=== PATIENT | female | born 1945 | race African-American/Black ===

== ENCOUNTER 2020-12-06 13:42 | Inpatient (IN) | payer MEDICARE, MEDICAID, SELFPAY ==
[2020-12-06] VITALS (20 sets, daily range): BP systolic 118–172; BP diastolic 46–96; PULSE 84–109; RESP 16–22; TEMP 36.2–36.8; O2SAT 96–100; BMI 43.6
--- NOTE | ~2020-12-06 | XR_ITS ---
EXAMINATION: XR chest 1V portable DATE: 12/06/2020 14:41 INDICATION: Chest pain. TECHNIQUE: A single frontal view of the chest was obtained on 2 radiographs. COMPARISON: None. FINDINGS: The patient is rotated to her right. There are mild airspace opacities in the lower lung zo amelia. No pleural effusion or pneumothorax. Cardiomegaly is noted. IMPRESSION: 1. Mild airspace opacities in the lower lung zones, consistent with atelectasis versus pneumonia. 2. Cardiomegaly. Reviewed, dictated and finalized at location B.
--- NOTE | ~2020-12-06 | XR_ITS ---
EXAMINATION: XR chest 1V portable INDICATION: Shortness of breath TECHNIQUE: Portable AP chest at 1351 hours COMPARISON: 12/06/2020 FINDINGS: There are patchy opacities throughout the right lung and in the left mid and lower lung zon es. No definite pleural effusion or pneumothorax is identified. Cardiomegaly is noted. Advanced osteo arthritis of the right shoulder and moderate osteoarthritis of the left. IMPRESSION: 1. Patchy opacities throughout the right lung and in the left mid and lower lung zones, consistent wi th pneumonia and/or atelectasis and/or pulmonary edema. Reviewed, dictated and finalized at location A. IMPRESSION: 1. Patchy opacities throughout the right lung and in the left mid and lower sharifa g zones, consistent with pneumonia and/or atelectasis and/or pulmonary edema.
--- NOTE | ~2020-12-06 | US_ITS ---
EXAMINATION: US venous doppler UE LT DATE: 12/07/2020 09:20 INDICATION: Left upper limb swelling TECHNIQUE: Grayscale images without and with compression and Doppler images of the left upper extremi ty veins were obtained. COMPARISON: None. FINDINGS: The left internal jugular vein, subclavian vein, axillary vein, brachial vein, basilic vein, cephalic vein, radial vein, and ulnar vein are patent. IMPRESSION: 1. Patent left upper extremity veins. No evidence of venous thrombosis. Reviewed, dictated and finalized at location A.
--- NOTE | ~2020-12-06 | CT_ITS ---
EXAMINATION: CT abdomen pelvis w con DATE: 12/06/2020 16:19 INDICATION: Abdomen pain TECHNIQUE: Computed tomography (CT) of the abdomen and pelvis was performed with 100 cc Omnipaque 350 intravenous contrast. The dose-length product was 1569.33 mGy-cm. Automated exposure control and ite rative reconstruction technique were employed. COMPARISON: None. FINDINGS: Small pleural effusions. Bibasilar dependent atelectasis. Cardiomegaly. There is subcutaneo us edema of the anterior and posterior soft tissues of the pelvis. There is fluid in the there is a u mbilical hernia containing nonobstructed bowel. No free air or free fluid. Silver catheter present in the bladder. Nonobstructive bowel gas pattern. There are bilateral renal cysts. The liver, spleen, pa ncreas, are unremarkable. There is mild bilateral symmetric hypertrophy of the adrenal glands without discrete mass. Severe lumbar spondylosis. There is severe osteoarthritis of the hips. Flank soft tis sues. IMPRESSION: 1. Small pleural effusions with bibasilar dependent atelectasis. 2: Umbilical hernia containing nonobstructed bowel. 3: Cardiomegaly. 4: Subcutaneous edema. Reviewed, dictated and finalized at location A.
--- NOTE | ~2020-12-06 | US_ITS ---
EXAMINATION: US renal BI DATE: 12/08/2020 14:28 INDICATION: Acute kidney injury TECHNIQUE: Multiple grayscale and Doppler ultrasound images of the kidneys were obtained. COMPARISON: CT, 12/06/2020 FINDINGS: The examination is limited by the patient's body habitus. The right kidney measures 11.1 x 5.1 x 5.6 cm. The known right kidney cyst is not demonstrated. The left kidney measures 13.5 x 6.7 x 6.9 cm and contains a 2.7 cm cyst. The kidneys demonstrate normal parenchymal echogenicity. There is no hydronephrosis. The bladder is decompressed by Silver catheter. IMPRESSION: 1. Normal kidneys without hydronephrosis. Reviewed, dictated and finalized at location A.
--- NOTE | 2020-12-06 13:47 | ECG_ITS ---
Measurements Intervals [place] Rate: 89 P: 58 WI: 142 QRS: 34 QRSD: 118 T: 128 QT: 405 QTc: 493 Interpretive Statements SINUS RHYTHM ATRIAL COUPLET, ATRIAL AND VENTRICULAR PREMATURE COMPLEXES INTRAVENTRICULAR CONDUCTION DELAY ST-T WAVE ABNORMALITY IN ANTEROLAT/HIGH LAT LEADS- CONSIDER ISCHEMIA BASELINE ARTIFACT- I, II, III, AVR, AVL, AVF, V1 ABNORMAL ECG Electronically Signed On 12-06-2020 13:53:20 CDT by Zion Saleh D.O.
--- NOTE | 2020-12-06 13:57 | ED.CHESTPAIN ---
HPI - Chest Pain General Chief Complaint: Chest Pain Stated Complaint: CP Time Seen by Provider: 12/06/20 13:53 Source: RN notes reviewed History of Present Illness HPI narrative: Patient presents to emergency department from [facility] via EMS for chest pain. Per the staff there the patient had chest pain earlier today and received 1 nitro which relieved her pain. Patient then had a second episode of chest pain received 3 nitros with resolution of pain. Patient currently in the emergency department complaining of diffuse abdominal pain she states that she has no chest pain at this time and does not fully recall the previous incident. She denies any fevers or chills shortness of breath nausea vomiting diarrhea or any other symptoms per staff at [facility] the patient's INR was also recently high and received vitamin K Related Data Allergies Allergy/AdvReac Type Severity Reaction Status Date / Time No Known Allergies Allergy Verified 12/06/20 16:50 Review of Systems Review of Systems: Narrative: Gen.: Denies fevers or chills Eyes: Denies eye pain or visual change ENT: Denies congestion Respiratory: Denies shortness of breath or cough CV: See HPI GI: Reports abdominal pain denies nausea vomiting or diarrhea chronic indwelling Silver Musculoskeletal: Denies back pain or muscle pain Neuro: Denies numbness, tingling, weakness or focal weakness Skin: Denies rash Except as documented, all other systems reviewed and negative [facility] Past Medical History Medical History (Updated 12/06/20 @ 17:19 by Con Chung DO) CHF (congestive heart failure) Social History Social History (Updated 12/06/20 @ 17:16 by Con Chung DO) Smoking status: Never smoker Exam Narrative: Exam Narrative: APPEARANCE: No acute distress, nontoxic, resting in bed EYES: EOMI HEENT: Normocephalic, atraumatic, OMM RESPIRATORY: No respiratory distress Clear to auscultation bilaterally with no rhonchi wheezing or rales. CARDIOVASCULAR: Regular rate and rhythm without murmurs rubs or gallops. ABDOMINAL: Obese, soft nondistended diffusely tender to palpation : Chronic indwelling Silver catheter MUSCULOSKELETAl: Moves all extremities. Right lower limb amputation NEURO: Awake and alert. Following commands, speech normal, no focal deficits SKIN:: Warm, dry. No rashes lesions or abrasions PSYCHIATRIC: Normal affect/mood, Course Course Emergency Course: Discussed with patient's daughter patient was recently admitted to [facility] will obtain records Discussed with ARSENIO Erwin for Dr. Paulino presentation work-up agrees with admission at this time Discussed with patient and family results of workup and diagnosis. Discussed need for admission. Patient and family understand and agree to current treatment plan Vital Signs Vital signs: Vital Signs Temperature 98.2 F 12/06/20 13:42 Pulse Rate 84 12/06/20 13:42 Respiratory Rate 20 12/06/20 13:42 Blood Pressure 166/96 H 12/06/20 13:42 Pulse Oximetry 99 12/06/20 13:42 Temperature 98.2 F 12/06/20 13:42 Pulse Rate 84 12/06/20 15:03 Respiratory Rate 16 12/06/20 15:03 Blood Pressure 166/96 H 12/06/20 13:42 Pulse Oximetry 98 12/06/20 15:03 MDM - Chest Pain Lab Data Result diagrams: 12/06/20 14:30 12/06/20 14:30 Labs: Lab Results 12/06/20 12/06/20 12/06/20 Range/Units 14:29 14:30 14:30 WBC 23.3 H (4.5-10.0) K/mm3 RBC 2.89 L (4.2-5.4) M/mm3 Hgb 8.7 L (12.0-15.0) g/dL Hct 27.3 L (37.0-47.0) % MCV 94.5 (80-100) fl MCH 30.1 (26-34) pg MCHC 31.9 L (32-36) g/dl RDW 15.4 H (11.5-14.5) % Plt Count 456 H (150-375) k/mm3 MPV 9.4 (7.4-10.4) fl Immature Gran % (Auto) Not Reportable Neut % (Auto) Not Reportable Lymph % (Auto) Not Reportable [place] % (Auto) Not Reportable Eos % (Auto) Not Reportable Baso % (Auto) Not Reportable Lymph # (Auto) Not Reporta
[2020-12-06 14:41] LABS: Hematocrit 27.3 % (37.0-47.0); Hemoglobin 8.7 g/dL (12.0-15.0); Mean Corpuscular HGB Conc 31.9 g/dl (32-36); Mean Corpuscular Hemoglobin 30.1 pg (26-34); Mean Corpuscular Volume 94.5 fl (80-100); Mean Platelet Volume 9.4 fl (7.4-10.4); Platelet Count Result 456 k/mm3 (150-375); Red Blood Count 2.89 M/mm3 (4.2-5.4); Red Cell Distribution Width 15.4 % (11.5-14.5); White Blood Count 23.3 K/mm3 (4.5-10.0)
[2020-12-06 14:51] LABS: Alanine Aminotransferase 31 U/L (4-35); Albumin Level 2.9 g/dL (3.5-5.1); Alkaline Phosphatase 106 U/L (38-126); Aspartate Amino Transferase 76 U/L (14-36); Bilirubin,Total 0.5 mg/dL (0.2-1.3); Lipase 23 U/L (23-300)
--- NOTE | 2020-12-06 14:52 | PC.NURSE ---
SPOKE WITH PT FAMILY AT THIS TIME, UPDATED ON PT STATUS. ASSISTED PT WITH ATTEMPTING BM, PT UNABLE TO GO, BED PAIN REMOVED, REPOSITIONED, CALL LIGHT IN REACH.
--- NOTE | 2020-12-06 14:53 | PC.NURSE ---
WHILE REPOSTIONING PT, PT NOTED TO HAVE COPIOUS AMOUNTS OF THICK WHITE DISCHARGE COMING FROM [facility]. EDP BEAR INFORMED, NO NEW ORDERS.
[2020-12-06 14:57] LABS: INR 1.3; Prothrombin Time 16.5 Seconds (11.1-14.7)
[2020-12-06 14:58] LABS: Partial Thromboplastin Time 36.2 SECONDS (22.3-36.8)
[2020-12-06 15:00] LABS: Anion Gap 5 mmol/L (8-16); Blood Urea Nitrogen 31 mg/dL (7-17); Calcium 8.6 mg/dL (8.4-10.2); Carbon Dioxide 27 mmol/L (22-30); Chloride 106 mmol/L (98-107); Estimated Glomerular Filt Rate 38; Glucose 107 mg/dL (65-105); Sodium 138 mmol/L (137-145)
[2020-12-06 15:07] LABS: Lymphocytes Absolute Manual 2.79 K/mm3 (1.1-4.5); Monocytes Absolute Manual 0.69 K/mm3 (0.1-0.90); Monocytes Percent Manual 3 % (3-9); Neutrophils Percent Manual 85 % (46-73); Total Cells Counted 100
[2020-12-06 15:08] LABS: Anisocytosis 2+ (NORMAL); Hypochromasia 1+ (NORMAL); Platelet Estimate Increased (Adequate)
[2020-12-06 15:11] LABS: Troponin I 0.013 ng/mL (0.000-0.034)
[2020-12-06] MEDS: SODIUM CHLORIDE 0.9% IV 1,000 ML 999 ML IV CONT (15:57)
--- NOTE | 2020-12-06 16:16 | PC.NURSE ---
JERICHO UPDATED ON PT STATUS AT THIS TIME.
[2020-12-06 16:54] LABS: Add Urine Microscopic? YES; Appearance Urine Cloudy (Clear); Bacteria Urine Trace /hpf; Bilirubin Urine Negative (Negative); Blood Urine Negative (Negative); Budding Yeast Urine Present /hpf; Calcium Oxalate Crystals Urine Present /hpf; Color Urine Amber (Yellow); Glucose Urine UA Negative (Negative); Ketones Urine Trace mg/dL (Negative); Leukocyte Esterase Ur 3+ LEU/UL (Negative); Mucus Urine Rare /lpf; Nitrate Urine Negative (Negative); Protein Urine 2+ mg/dL (Negative); Specific Grav Ur 1.017 (1.001-1.035); Squamous Epithelial Cell Urine Few /hpf (Few); Urobilinogen Urine Negative mg/dL (<2.0); WBC Urine >75 /hpf
--- NOTE | 2020-12-06 17:23 | PC.NURSE ---
Called binu johnson, confirmed arrival for blood cultures, lactic, and trop.
[2020-12-06 17:37] LABS: Lactic Acid Reflex 1.5 mmol/L (0.7-2.1)
--- NOTE | 2020-12-06 18:40 | PC.NURSE ---
Unable to obtain 2nd set of blood cultures. Pt. becoming uncooperative upon blood draw.
--- NOTE | 2020-12-06 20:59 | ADMGEN ---
This patient, Jolie Amador, was admitted to IMU Room 204-01 AT 1955. Patient/family oriented to hospital policies and general routines including ID bracelet, bed and alarms, visiting hours, pain management, procedures, bathroom and other care routines, personal items, smoking policy, room service/diet, and visiting hours. Information on how to activate the Rapid Response Team has been discussed. Patient/Family are encouraged to report perceived risks to care and to ask questions if they do not understand what they are told or what they should do.
--- NOTE | 2020-12-06 21:15 | PM.IMHP ---
H&P: HPI History of Present Illness Date/Time: 12/06/20 21:15 this is a 75-year-old female patient who resides at [facility]. She has a past medical history of dementia. The patient was complaining of chest pain and given nitro x3 at the alf. This appeared to resolve her chest pain. The patient tells me that her chest pain started last night. Her EKG was read as sinus rhythm with frequent supraventricular premature complexes moderate intraventricular conduction delay. ST deviation and moderate T-wave and most normal Penilla. The patient was satting 95% on 3 L per nasal cannula normally the patient takes Coumadin for unknown reason and her INR was high and she was given vitamin K over the weekend. Her white count is 23.3. The patient has a chronic necrotic right heel ulcer and also has at of very large unstageable pressure ulcer on the sacral area as well. Her H&H is 8.7 and 27.3 baseline is unknown. Patient was recently at [facility] and we are attempting to get records from that hospital. Her INR was found to be 1.3. Her creatinine is 1.6. Her baseline is unknown. Lactic is normal. Patient was started on Rocephin in the emergency room for her urinary tract infection. First troponin is negative and the 2nd 1 is still pending. The patient denied any chest pain to the ER provider and stated she had abdominal discomfort.On the date of service of 12/06/2020. Chief Complaint: Chest pain Review of Systems Review of Systems: ROS unobtainable: Yes unobtainable due to mental status Constitutional: Constitutional: Reports as per HPI and Reports no additional constitutional complaints Eyes: Eyes: Reports as per HPI and Reports no additional eye complaints ENT: Reports system reviewed and no additional complaints, except as documented and Reports Normal hearing present Cardiovascular: Cardiovascular: Reports no additional cardiovascular complaints Respiratory: Respiratory: Reports no additional respiratory complaints and Reports no additional respiratory complaints Gastrointestinal: Gastrointestinal: Reports as per HPI and Reports no additional gastrointestinal complaints Musculoskeletal: Musculoskeletal: Reports no additional musculoskeletal complaints Integumentary/Breasts: Skin/Breast: Reports system reviewed and no additional complaints, except as docu and Reports as per HPI Neurologic: Reports system reviewed and no additional complaints, except as documented, Reports as per HPI and Reports Normal hearing present Psychiatric: Psychiatric: Reports no additional psychiatric complaints and Reports as per HPI Endocrine: Endocrine: Reports no additional endocrine complaints Hematologic/Lymphatic: Hematologic/Lymphatic: Reports no additional hematologic/lymphatic complaints Allergic/Immunologic: Allergic/Immunologic: Reports no additional allergic/immunologic complaints [facility] Past Medical History Medical History (Updated 12/06/20 @ 21:29 by Yaima Jason NP) Blindness CAD (coronary artery disease) CHF (congestive heart failure) Chronic renal failure, stage 3 (moderate) COPD (chronic obstructive pulmonary disease) DM2 (diabetes mellitus, type 2) Heel ulcer History of left above knee amputation Hypertension Sacral ulcer Seizure disorder Surgical History Surgical History (Updated 12/06/20 @ 21:29 by Yaima Jason NP) H/O abdominal surgery The patient has a scar to her upper abdomen as well as her lower abdomen. Family History Family History (Updated 12/06/20 @ 21:29 by Yaima Jason NP) Unknown Unknown family medical history Social History Social History (Updated 12/06/20 @ 21:37 by Yaima Jason NP) Social History: The patient has a living will with her daughters being the power chief service observer. The patient tells me that she has 4 children. She is . The patient stated that she was a [id number] mother. She denied any tobacco alcohol or illicit drugs
[2020-12-06 23:37] LABS: Troponin I 0.014 ng/mL (0.000-0.034)
[2020-12-07] VITALS (16 sets, daily range): BP systolic 97–148; BP diastolic 44–81; PULSE 66–111; RESP 18–22; TEMP 36.1–36.7; O2SAT 92–100; BMI 43.6
[2020-12-07] MEDS: hydrALAZINE HCL 50 MG TABLET PO ×3 (05:51→21:20)
[2020-12-07 06:06] LABS: Basophils Absolute Auto 0.1 K/mm3 (0.0-0.1); Basophils Percent Auto 0.3 % (0.2-1.2); Eosinophils Absolute Auto 0.1 K/mm3 (0-0.3); Eosinophils Percent Auto 0.2 % (0-4.4); Hematocrit 23.5 % (37.0-47.0); Hemoglobin 7.5 g/dL (12.0-15.0); Immature Granulocyte Absolute 0.53 K/mm3 (0.00-0.031); Mean Corpuscular HGB Conc 31.9 g/dl (32-36); Mean Corpuscular Hemoglobin 29.8 pg (26-34); Mean Corpuscular Volume 93.3 fl (80-100); Mean Platelet Volume 9.2 fl (7.4-10.4); Monocytes Absolute Auto 1.5 K/mm3 (0.1-0.6); Monocytes Percent Auto 5.7 % (2.6-8.5); Neutrophils Absolute Auto 20.6 K/mm3 (1.3-6.7); Neutrophils Percent Auto 79.8 % (45.5-73.1); Nucleated Red Blood Cells Absolute Auto 0.1 K/mm3 (0.0-0.012); Nucleated Red Blood Cells Perc 0.2 % (0.0-0.2); Platelet Count Result 367 k/mm3 (150-375); Red Blood Count 2.52 M/mm3 (4.2-5.4); Red Cell Distribution Width 15.3 % (11.5-14.5); White Blood Count 25.9 K/mm3 (4.5-10.0)
[2020-12-07 06:17] LABS: Alanine Aminotransferase 29 U/L (4-35); Albumin Level 2.5 g/dL (3.5-5.1); Alkaline Phosphatase 90 U/L (38-126); Anion Gap 7 mmol/L (8-16); Aspartate Amino Transferase 62 U/L (14-36); Bilirubin,Total 0.3 mg/dL (0.2-1.3); Blood Urea Nitrogen 28 mg/dL (7-17); Calcium 8.3 mg/dL (8.4-10.2); Carbon Dioxide 27 mmol/L (22-30); Chloride 109 mmol/L (98-107); Estimated CRCL calculation 36 ml/min; Estimated Glomerular Filt Rate 30; Glucose 71 mg/dL (65-105); Potassium 3.7 mmol/L (3.4-5.0); Sodium 143 mmol/L (137-145)
[2020-12-07] MEDS: oxyCODONE/ACETAMINOPHEN (*CRX) 5-325 MG TABLET PO (06:17)
[2020-12-07 06:25] LABS: INR 1.4
[2020-12-07 08:01] LABS: Hemoglobin A1C 9.4 % (<5.7)
[2020-12-07 08:21] LABS: Glucose Point of Care 69 mg/dl (65-105)
--- NOTE | 2020-12-07 08:40 | PM.CNCAR ---
Assessment and Plan Assessment and plan (1) Chest pain: Code(s): R07.9 - Chest pain, unspecified Status: Acute Assessment and Plan: 75-year-old female with past medical history of ? coronary disease and MS status post stenting as per patient (intervention reports are not available) hypertension, diabetes mellitus, renal insufficiency, history of left AKA, cognitive impairment/dementia. Patient's cognitive impairment/questionable dementia, and limited information could be obtained from the patient. She presented to the hospital with complaints of chest pain and abnormal discomfort. Her EKG shows sinus rhythm, ST-T abnormalities in the lateral leads. Old EKG is not available. Serial troponins are negative thus far. Patient is receiving treatment for UTI. -continue home medications including aspirin, beta-tatiana, statin. Nitroglycerin as needed for chest pain. -obtain medical records from [facility] about patient's previous cardiac workup. -need for any additional cardiac workup will be based on patient's previous cardiac workup and on clinical course during this hospitalization. -other medical management as per primary team. (2) Heel ulcer: Code(s): L97.409 - Non-pressure chronic ulcer of unspecified heel and midfoot with unspecified severity Status: Chronic Assessment and Plan: Local wound care, surgical evaluation for sacral decubitus ulcer debridement. History of Present Illness History of Present Illness Consult date/time: 12/07/20 08:40 Date of consult: 12/07/2020 Reason for consult: Chest pain Requesting physician: Dr. Giron Chief complaint: Chest pain, abdominal pain HPI: 75-year-old female with past medical history of ? coronary disease and MS status post stenting as per patient (intervention reports are not available) hypertension, diabetes mellitus, renal insufficiency, history of left AKA, cognitive impairment/dementia. Patient is a senior living resident and was brought to [facility] on 12/06/2020 with complaints of chest discomfort. Apparently, she had recurrent chest discomfort after sublingual nitroglycerin. Since admission to the hospital, her chest pain has resolved. She had complained of abdominal pain at the time of presentation. At present, her main complaint is right foot and pain. Patient has cognitive impairment, and is unable to provide detailed medical information. She states that she sees a fitter helper at [facility]. She is unable to recall the name of the fitter helper. Her medication list shows warfarin, uncertain about the indication at this time. Her baseline functional capacity is unknown. EKG on my personal evaluation shows sinus rhythm, PACs, nonspecific intraventricular conduction delay, ST-T abnormality in the lateral leads. Serial troponins are negative. Chest x-ray shows mild airspace opacities in the lower lung zones, consistent with atelectasis versus pneumonia; cardiomegaly. CT scan of the abdomen and pelvis shows Small pleural effusions with bibasilar dependent atelectasis; umbilical hernia containing nonobstructed bowel, cardiomegaly, subcutaneous edema. Patient has leukocytosis with left shift, and UA is suggestive of UTI. Reason For Visit: UTI/chest pain/abdominal pain Review of Systems Review of Systems: Narrative: General: Generalized fatigue Psychological: Positive for anxiety, depression Ophthalmic: negative for loss of vision ENT: Negative for epistaxis, headaches Allergy and immunology: Negative for hives, nasal congestion Hematologic and lymphatic: Negative for overt bleeding problems Endocrine: Negative for hot flashes, palpitations Respiratory: Negative for cough, hemoptysis Cardiovascular: Positive for chest pain Gastrointestinal: Positive for generalized abdominal pain Musculoskeletal: Positive for right leg pain Neurological: Positive for generalized weakness Dermatological: Skin break
--- NOTE | 2020-12-07 09:00 | PM.IMPN ---
Progress Note: A&P Assessment and Plan (1) Chest pain: Code(s): R07.9 - Chest pain, unspecified Status: Acute Assessment and Plan: Patient had 3 nitroglycerins prior to coming to the hospital and stated that relieved her discomfort. The patient got here she was complaining of some diffuse abdominal pain instead. The patient has a history of coronary artery disease and has been on Ranexa 1st troponin was negative. Cardiology consult was ordered. (2) CHF (congestive heart failure): Code(s): I50.9 - Heart failure, unspecified Status: Acute Assessment and Plan: Continue with home medications. (3) Chronic renal failure, stage 3 (moderate): Code(s): N18.30 - Chronic kidney disease, stage 3 unspecified Status: Chronic Assessment and Plan: Awaiting records from [facility] to compare labs. The patient had IV fluids but I will will discontinue since she has congestive heart failure. Recheck labs in the a.m.. (4) DM2 (diabetes mellitus, type 2): Code(s): E11.9 - Type 2 diabetes mellitus without complications Status: Chronic Assessment and Plan: Accu-Cheks AC and HS. Check A1c. (5) Seizure disorder: Code(s): G40.909 - Epilepsy, unspecified, not intractable, without status epilepticus Status: Chronic Assessment and Plan: Continue home medications. (6) Hypertension: Code(s): I10 - Essential (primary) hypertension Status: Chronic Assessment and Plan: Continue with home medications. (7) COPD (chronic obstructive pulmonary disease): Code(s): J44.9 - Chronic obstructive pulmonary disease, unspecified Status: Chronic Assessment and Plan: Continue with home medications. (8) Acute UTI: Code(s): N39.0 - Urinary tract infection, site not specified Status: Acute Assessment and Plan: Patient was started on Rocephin. Please monitor blood in urine cultures. (9) Heel ulcer: Code(s): L97.409 - Non-pressure chronic ulcer of unspecified heel and midfoot with unspecified severity Status: Chronic Assessment and Plan: Patient has eschar tissue to the right heel please see the pictures on the computer. Wound care consult was placed. Further recommendation per wound care. (10) Anemia: Code(s): D64.9 - Anemia, unspecified Status: Acute Assessment and Plan: Continue to monitor. We have no previous labs. Additional Plan The patient has a chronic sacral wound that is unstageable. Please see the pictures in the computer. Wound care consult has been placed. The patient also has eschar tissue to the right heel. Surgical and wound care consult is ordered. Wound culture was also ordered. Antibiotics changed to vancomycin and Zosyn. Pharmacy to dose. Will continue current treatment and follow cultures. Subjective Date/time seen: 12/07/20 09:00 Patient was seen during the morning rounds today. Patient is relatively asymptomatic. Patient denies any shortness of breath or chest pain. Patient denies any abdominal pain, nausea or vomiting. Mood stable. Review of Systems Review of Systems: ROS unobtainable: Yes unobtainable due to mental status Constitutional: Constitutional: Reports as per HPI and Reports no additional constitutional complaints Eyes: Eyes: Reports as per HPI and Reports no additional eye complaints ENT: Reports system reviewed and no additional complaints, except as documented and Reports Normal hearing present Cardiovascular: Cardiovascular: Reports no additional cardiovascular complaints Respiratory: Respiratory: Reports no additional respiratory complaints and Reports no additional respiratory complaints Gastrointestinal: Gastrointestinal: Reports as per HPI and Reports no additional gastrointestinal complaints Musculoskeletal: Musculoskeletal: Reports no additional musculoskeletal complaints Integumentary/Breasts: Skin/B
[2020-12-07 09:54] LABS: Glucose Point of Care 104 mg/dl (65-105)
[2020-12-07] MEDS: DOCUSATE SODIUM 100 MG CAPSULE PO (11:33)
[2020-12-07] MEDS: dilTIAZem HCL CD 180 MG CAP.ER.24H PO (11:33)
[2020-12-07] MEDS: levETIRAcetam 500 MG TABLET PO ×2 (11:33→17:33)
[2020-12-07] MEDS: FUROSEMIDE 40 MG TABLET PO (11:33)
[2020-12-07] MEDS: RANOLAZINE 500 MG TAB.ER.12H PO ×2 (11:33→17:33)
[2020-12-07] MEDS: SOD HYPOCHLORITE 1/4 STRENGTH 473 ML 1 APPLIC TOPICAL ×2 (11:34→21:20)
[2020-12-07] MEDS: MULTIVIT W/ IRON, MINERALS 15 ML LIQUID (*BKC) PO (11:34)
[2020-12-07] MEDS: PANTOPRAZOLE 40 MG TABLET PO (11:34)
[2020-12-07] MEDS: METOPROLOL TARTRATE 50 MG TAB PO ×2 (11:34→21:20)
[2020-12-07] MEDS: ATORVASTATIN 10 MG TABLET PO (11:34)
[2020-12-07] MEDS: ASPIRIN 81 MG ENTERIC TABLET PO (11:34)
--- NOTE | 2020-12-07 12:28 | PM.CNGS ---
Assessment and Plan Assessment and plan (1) Decubitus ulcer of sacral region, unstageable: Onset Date: Unknown Code(s): L89.150 - Pressure ulcer of sacral region, unstageable Status: Chronic Assessment and Plan: The patient has an unstageable sacral decubitus ulcer with odorous purulent drainage. This could be contributing to her leukocytosis. We would recommend proceeding with excisional debridement. This seems most appropriate to be done in the OR due to her body habitus, size and location of the ulcer, risks for bleeding, and for pain control/comfort to tolerate sufficient debridement. Since the patient has eaten today, we will try to add her to the surgery schedule tomorrow with Dr. Christina. Continue broad-spectrum IV antibiotics. Will also initiate BID dressing changes with Dakin's solution for now. Minimize pressure to her wounds with frequent turning and repositioning. Will request a First Step specialty mattress. I discussed the plan with Lorena, the patient's daughter who is not the POA, because her daughter/POA Armida is out of town and was unavailable. Lorena is going to get ahold of her to have her call the hospital regarding consent. (2) Heel ulcer: Code(s): L97.409 - Non-pressure chronic ulcer of unspecified heel and midfoot with unspecified severity Status: Chronic Assessment and Plan: Unstageable right heel ulcer with firm, dry eschar overlying the wound bed. This appears stable. Will start betadine dressing changes daily. Encourage pressure offloading and use heel protectors, which she has from the longterm. (3) Leukocytosis: Code(s): D72.829 - Elevated white blood cell count, unspecified Status: Acute Assessment and Plan: WBC markedly elevated with an increase to 25,900 today. Source could be urinary versus sacral decubitus ulcer. Would agree with broadening antibiotic coverage. She is now on IV Zosyn and Vancomycin. Trend labs. (4) Acute UTI: Code(s): N39.0 - Urinary tract infection, site not specified Status: Acute Assessment and Plan: Urinalysis suggests UTI, urine culture pending. Could be contributing to leukocytosis. Continue IV abx and management per Hospitalist. (5) Chest pain: Code(s): R07.9 - Chest pain, unspecified Status: Acute Assessment and Plan: Cardiology following. Serial troponins negative thus far. They are requesting records from [facility] to decide on further work-up. (6) Anticoagulant long-term use: Code(s): Z79.01 - intermediate frame tender (current) use of anticoagulants Status: Acute Assessment and Plan: INR 1.4, repeat labs tomorrow. Warfarin has been restarted from her home medication list. After speaking with the patient and her daughter, I was unable to definitively find out why she is on chronic anticoagulation. The patient mentioned having a heart valve replacement, but her daughter could not confirm this. In review of her imaging with the Radiologist, he does not see a mechanical valve at the mitral or tricuspid valve on her CT, and was unable to visualize the aortic and pulmonic valves. The Radiologist could not make out a mechanical heart valve on the chest x-ray either, but also felt that there was a slight possibility it could be missed on this film because it was a poor picture. In regards to surgical intervention, although it is not ideal, we will still plan to proceed with debridement while the patient is on her warfarin to eliminate the risks associated with holding her anticoagulation. This will be done in the OR where there are more options to achieve hemostasis if needed while debriding the wound. (7) DM2 (diabetes mellitus, type 2): Code(s): E11.9 - Type 2 diabetes mellitus without complications Status: Chronic (8) CHF (congestive heart failure): Code(s): I50.9 - Heart failure, unspecified Status: Acute (9) COPD (chronic obstructive pulmonary disea
[2020-12-07 12:29] LABS: Glucose Point of Care 133 mg/dl (65-105)
--- NOTE | 2020-12-07 16:31 | WPDANESEPP ---
Anes - Eval Pre Procedure Procedure: Operation Date: 12/08/20 07:30 Proposed Procedures p Debridement Sacral Decubitus Ulcer - Darío Christina DO Date/Time: 12/07/20 16:31 Pre Op Diagnosis: UTI/chest pain/abdominal pain Patient Data Age: 75 Gender: F Height: 5 ft 11 in Weight: 141.8 kg Last Vital Signs Temp 97.5 F L 12/07/20 16:00 Pulse 78 12/07/20 16:00 Resp 22 H 12/07/20 16:00 BP 133/44 L 12/07/20 16:00 Pulse Ox 100 12/07/20 16:00 Allergies Allergy/AdvReac Type Severity Reaction Status Date / Time No Known Allergies Allergy Verified 12/06/20 16:50 Home Medications Medication Instructions Recorded Confirmed Type Adult One Daily Multivitamin 1 tab-cap BYMOUTH DAILY 12/06/20 12/06/20 History Arginaid 1 packet BYMOUTH BID 12/06/20 12/06/20 History aspirin [Aspir-81] 81 mg PO DAILY 12/06/20 12/06/20 History atorvastatin 10 mg PO DAILY 12/06/20 12/06/20 History cetirizine 10 mg PO DAILY 12/06/20 12/06/20 History diltiazem HCl 180 mg PO DAILY 12/06/20 12/06/20 History furosemide 40 mg PO DAILY 12/06/20 12/06/20 History hydralazine 50 mg PO Q8H 12/06/20 12/06/20 History insulin lispro protamin-lispro 52 unit SUBCUT BID 12/06/20 12/06/20 History [Humalog Mix 75-25(U-100)Insuln] ipratropium-albuterol 1 ml INHALATION Q6H PRN 12/06/20 12/06/20 History levetiracetam 500 mg PO BID 12/06/20 12/06/20 History losartan 100 mg PO DAILY 12/06/20 12/06/20 History metoprolol tartrate 50 mg PO BID 12/06/20 12/06/20 History nitroglycerin 0.4 mg SUBLINGUAL USEASDIRECTD 12/06/20 12/06/20 History oxycodone-acetaminophen 1 - 2 tablet PO Q4H PRN 12/06/20 12/06/20 History ranolazine 500 mg PO BID 12/06/20 12/06/20 History warfarin 6 mg PO DAILY 12/06/20 12/06/20 History Laboratory Tests 12/06/20 12/06/20 12/06/20 16:41 17:17 18:39 WBC RBC Hgb Hct MCV MCH MCHC RDW Plt Count MPV Immature Gran % (Auto) Neut % (Auto) Lymph % (Auto) [place] % (Auto) Eos % (Auto) Baso % (Auto) Lymph # (Auto) [place] # (Auto) Eos # (Auto) Baso # (Auto) Abs Immat Gran (auto) Absolute Neuts (auto) Absolute Nucleated RBC Nucleated RBC % PT INR Sodium Potassium Chloride Carbon Dioxide Anion Gap BUN Creatinine Estim Creat Clear Calc Estimated GFR Glucose POC Capillary Glucose Hemoglobin A1c Lactic Acid 1.5 mmol/L mmol/L (0.7-2.1) Calcium Total Bilirubin AST ALT Alkaline Phosphatase Troponin I Cancelled Total Protein Albumin Urine Color Tanika (Yellow) Urine Appearance Cloudy H (Clear) Urine pH 5.0 (5.0-9.0) Ur Specific [place] 1.017 (1.001-1.035) Urine Protein 2+ mg/dL H mg/dL (Negative) Urine Glucose (UA) Negative mg/dL mg/dL (Negative) Urine Ketones Trace mg/dL mg/dL (Negative) Ur Blood (Man) Negative (Negative) Urine Nitrate Negative (Negative) Urine Bilirubin Negative (Negative) Urine Urobilinogen Negative mg/dL mg/dL (<2.0) Leukocyte Esterase Rfl 3+ NELY/UL H NELY/UL (Negative) Urine RBC 11-20 /hpf H /hpf (0-2) Urine WBC >75 /hpf H /hpf Ur Squamous Epith Cells Few /hpf /hpf (Few) Calcium Oxalate Crystal Present /hpf /hpf (None) Urine Bacteria Trace /hpf /hpf Hyaline Casts 3-4 /lpf H /lpf (None) Urine Mucus Rare /lpf /lpf Urine Yeast (
[2020-12-07 16:34] LABS: Glucose Point of Care 229 mg/dl (65-105)
[2020-12-07] MEDS: WARFARIN (*PBKC) 3 MG TABLET 6 MG PO (17:33)
[2020-12-07 17:41] LABS: Glucose Point of Care 194 mg/dl (65-105)
[2020-12-07] MEDS: SODIUM CHLORIDE 0.45% 1,000 ML 75 ML IV CONT (18:38)
[2020-12-07 19:57] LABS: Glucose Point of Care 210 mg/dl (65-105)
[2020-12-08] VITALS (24 sets, daily range): BP systolic 99–156; BP diastolic 43–91; PULSE 45–83; RESP 10–26; TEMP 35.7–37.2; O2SAT 93–100
[2020-12-08] MEDS: SODIUM CHLORIDE 0.9% IV 1,000 ML 999 ML IV CONT (04:55)
--- NOTE | 2020-12-08 06:33 | PC.NURSE ---
NOTIFIED SURGERY THAT LABORATORY WAS UNABLE TO GET PATIENTS BLOOD FOR SURGERY.
[2020-12-08] MEDS: LACTATED RINGERS 1,000 ML 30 ML IV CONT (06:50)
[2020-12-08 06:53] LABS: Glucose Point of Care 152 mg/dl (65-105)
--- NOTE | 2020-12-08 06:58 | WPDANESEFPP ---
Anes - Eval Final PreProcedure Day of Procedure 12/08/20 06:58 Patient weight: morbidly obese Heart: regular rate and rhythm Lungs: clear to auscultation Neurological: confused Last oral intake: >/= 8 hours ASA classification: IV Emergent: no Anesthetic plan: proceed Anesthesia type and monitoring: general ETT Informed Consent: The patient's anesthetic plan and its attendant risks and benefits were discussed with the patient/family/POA. Questions were solicited and answers provided to the satisfaction of the patient/family/POA.
--- NOTE | 2020-12-08 07:19 | WPDHPUPDATE1 ---
History and Physical Update Update Date/Time: 12/08/20 07:19 History and Physical has been reviewed, including an updated exam of the patient. There are NO changes in the patient's condition. Risks, benefits, and alternatives have been discussed and questions answered. Patient agrees to proceed with procedure.
--- NOTE | 2020-12-08 08:18 | P.OP_ITS ---
Procedure Note - Detailed Date of procedure: 12/08/20 Pre-op diagnosis: Unstageable Sacral Decubitus Ulcer Post-op diagnosis: other (Stage IV Sacral Decubitus Ulcer) Procedure performed: Sharp excisional debridement of sacral decubitus ulcer including skin, subcutaneous fat, muscle, fascia, and bone measuring 10 cm x 10 cm Description of procedure: * Procedure, risks, benefits, and alternatives discussed with family and consent obtained over the telephone prior to procedure. Patient was brought back to surgical suite. General anesthesia administered by the Anesthesia Department. She was then positioned on the operating room table in right lateral decubitus position. Her sacral area was prepped and draped in sterile fashion using Betadine prep. Sharp excisional debridement was performed using a 10 blade scalpel of the overlying skin. Debridement was continued deeper into subcutaneous fat, muscle, fascia, and all the way to the sacrum. The tissue was excised back to somewhat more healthy appearing tissue, but there still appeared to be extensive necrotic tissue within the wound bed. Deep tissue cultures were obtained for aerobic and anaerobic culture and sensitivity. The total dimensions of the debridement measured 10 cm x 10 cm. Hemostasis was achieved with electrocautery. Bed was then irrigated with sterile saline. Betadine soaked 4 in Kerlix gauze was then packed in the wound bed followed by a heavy drainage pack. The patient was awakened from anesthesia and transferred to recovery. [facility] Surgeon: Darío Christina DO Estimated blood loss (mL): 5 Packing: Yes (4 inch Betadine-soaked Kerlix gauze) Complications: No immediate complications Condition: stable Disposition: floor ([facility]) Findings: * Sharp excisional debridement of the unstageable sacral decubitus ulcer was performed. Once the surface of the wound was excised, I was able to identify necrotic tissue extending all the way down to the sacrum. There was extensive necrotic tissue within the wound bed and a excisional debridement performed for a total area of 10 cm x 10 cm. There is still likely more necrotic tissue within the wound and she would likely need multiple further debridements before adequate control. Overall prognosis is poor even with aggressive care.
[2020-12-08 09:27] LABS: Hematocrit 21.9 % (37.0-47.0); Mean Corpuscular HGB Conc 31.5 g/dl (32-36); Mean Corpuscular Volume 95.2 fl (80-100); Mean Platelet Volume 9.4 fl (7.4-10.4); Platelet Count Result 324 k/mm3 (150-375); Red Cell Distribution Width 15.4 % (11.5-14.5); White Blood Count 24.7 K/mm3 (4.5-10.0)
[2020-12-08] MEDS: hydrALAZINE HCL 50 MG TABLET PO (09:32)
[2020-12-08] MEDS: PANTOPRAZOLE 40 MG TABLET PO (09:34)
[2020-12-08] MEDS: ATORVASTATIN 10 MG TABLET PO (09:34)
[2020-12-08] MEDS: levETIRAcetam 500 MG TABLET PO ×2 (09:34→18:25)
[2020-12-08] MEDS: DOCUSATE SODIUM 100 MG CAPSULE PO (09:34)
[2020-12-08] MEDS: METOPROLOL TARTRATE 50 MG TAB PO (09:34)
[2020-12-08] MEDS: RANOLAZINE 500 MG TAB.ER.12H PO ×2 (09:34→18:29)
[2020-12-08] MEDS: ASPIRIN 81 MG ENTERIC TABLET PO (09:34)
[2020-12-08] MEDS: FUROSEMIDE 40 MG TABLET PO (09:35)
[2020-12-08] MEDS: dilTIAZem HCL CD 180 MG CAP.ER.24H PO (09:35)
[2020-12-08] MEDS: SOD HYPOCHLORITE 1/4 STRENGTH 473 ML 1 APPLIC TOPICAL ×2 (09:37→21:54)
--- NOTE | 2020-12-08 09:46 | PM.PNCARD ---
Progress Note: A&P Assessment and Plan (1) Chest pain: Code(s): R07.9 - Chest pain, unspecified Status: Acute Assessment and Plan: Poorly described chest pain, negative troponins. EKG equivocal, as she does have T-wave inversion in 1, L, V5 and V6 which is new compared to November 18, 2020. Which may represent ischemia. Had nonocclusive coronary disease by cardiac catheterization in 2018 (50% RCA stenosis, mild disease elsewhere) Negative stress test 2018. Continue medical therapy With beta-tatiana, anticoagulation and/or aspirin, atorvastatin, ranolazine, p.r.n. nitroglycerin. Has slightly elevated liver enzymes but I would like to increase the atorvastatin to 20 mg daily. Follow LFTs. No further evaluation needed. Will sign off but please call if I can be of assistance. (2) CAD (coronary artery disease): Code(s): I25.10 - Atherosclerotic heart disease of [place] coronary artery without angina pectoris Status: Inactive Assessment and Plan: History of CAD as above. Continue medical therapy. (3) Hypertension: Code(s): I10 - Essential (primary) hypertension Status: Chronic Assessment and Plan: Reasonably controlled for now. (4) PAD (peripheral artery disease): Code(s): I73.9 - Peripheral vascular disease, unspecified Status: Acute Assessment and Plan: History of PAD, on chronic anticoagulations, status post AKA Subjective Date/time seen: 12/08/20 09:47 Interval history: Follow-up for chest pain, CAD. 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 Date of service 12/08/2020: Patient underwent debridement of her sacral decubitus ulcer this morning by Dr. Garcia. Patient denies any chest pain or shortness of breath for complains of pain of her lower back/decubitus. Says she takes nitroglycerin about once a day at home. Complains that she is uncomfortable; the bed is too hard. Review of previous cardiac studies: 11/18/2020 EKG: NSR, small Q-waves inferiorly cannot rule out old IMI, nonspecific changes inferiorly. Personally reviewed 10/29/2020 ECHO: Normal LV function, diastolic dysfunction 11/19/[address] Ramirez, [facility], patient is stable with no chest pain and controlled blood pressure 01/09/2018 Lexiscan: No ischemia, EF 57% 10/14/2012 cardiac catheterization: Nonocclusive coronary disease, 50% RCA stenosis, 40% stenosis of OM2, mild disease elsewhere, normal LV function, continue medical therapy Review of Systems Constitutional: Constitutional: Reports weakness Eyes: Eyes: Reports no additional eye complaints ENT: Denies epistaxis Cardiovascular: Cardiovascular: Denies chest pain, Reports leg edema and Denies palpitations Respiratory: Respiratory: Denies dyspnea Gastrointestinal: Gastrointestinal: Denies abdominal pain Genitourinary: Genitourinary: Denies flank pain Musculoskeletal: Musculoskeletal: Reports back pain Integumentary/Breasts: Skin/Breast: Reports wounds (Apparently has a sacral decubitus) Neurologic: Reports confusion Psychiatric: Psychiatric: Reports confusion Exam Const: General: comfortable and no acute distress HENMT: Mouth: Yes dry mucous membranes Eyes: EOM: EOMs intact bilaterally Neck: Neck: supple Resp: Effort & Inspection: normal respiratory effort Auscultation: clear to auscultation bilaterally Cardio: Rate: regular rate Rhythm: regular rhythm Heart sounds: no murmurs GI: GI Palp: Yes Soft to palpation and No Tenderness to palpation present (GI) Skin: General skin exam: normal color Wounds: wounds noted (Has a sacral decubitus) Neuro: Cognition (Neuro): abnormal cognition Speech: normal speech Extrem: General: edema (Edema of upper extremities and lower
[2020-12-08 09:49] LABS: INR 2.1; Prothrombin Time 23.9 Seconds (11.1-14.7)
[2020-12-08 09:53] LABS: Alanine Aminotransferase 27 U/L (4-35); Albumin Level 2.3 g/dL (3.5-5.1); Alkaline Phosphatase 87 U/L (38-126); Anion Gap 8 mmol/L (8-16); Aspartate Amino Transferase 43 U/L (14-36); Bilirubin,Total 0.4 mg/dL (0.2-1.3); Blood Urea Nitrogen 37 mg/dL (7-17); Calcium 7.5 mg/dL (8.4-10.2); Carbon Dioxide 24 mmol/L (22-30); Chloride 106 mmol/L (98-107); Estimated CRCL calculation 29 ml/min; Estimated Glomerular Filt Rate 23; Glucose 183 mg/dL (65-105); Sodium 138 mmol/L (137-145)
[2020-12-08 10:04] LABS: Hemoglobin 6.9 g/dL (12.0-15.0)
[2020-12-08 12:30] LABS: Glucose Point of Care 231 mg/dl (65-105)
--- NOTE | 2020-12-08 12:30 | PM.IMPN ---
Progress Note: A&P Assessment and Plan (1) Chest pain: Code(s): R07.9 - Chest pain, unspecified Status: Acute Assessment and Plan: Patient had 3 nitroglycerins prior to coming to the hospital and stated that relieved her discomfort. 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 (2) CHF (congestive heart failure): Code(s): I50.9 - Heart failure, unspecified Status: Acute Assessment and Plan: Acute on top of chronic diastolic CHF exacerbation developed during hospitalization will add IV albumin and give IV Lasix as tolerated by blood pressure (3) Chronic renal failure, stage 3 (moderate): Code(s): N18.30 - Chronic kidney disease, stage 3 unspecified Status: Chronic Assessment and Plan: DC IV fluid monitor avoid nephrotoxic medication. (4) DM2 (diabetes mellitus, type 2): Code(s): E11.9 - Type 2 diabetes mellitus without complications Status: Chronic Assessment and Plan: Accu-Cheks AC and HS. Check A1c. (5) Seizure disorder: Code(s): G40.909 - Epilepsy, unspecified, not intractable, without status epilepticus Status: Chronic Assessment and Plan: Continue home medications. (6) Hypertension: Code(s): I10 - Essential (primary) hypertension Status: Chronic Assessment and Plan: Continue with home medications. (7) COPD (chronic obstructive pulmonary disease): Code(s): J44.9 - Chronic obstructive pulmonary disease, unspecified Status: Chronic Assessment and Plan: Continue with home medications. (8) Acute UTI: Code(s): N39.0 - Urinary tract infection, site not specified Status: Acute Assessment and Plan: Continue IV antibiotics (9) Heel ulcer: Code(s): L97.409 - Non-pressure chronic ulcer of unspecified heel and midfoot with unspecified severity Status: Chronic Assessment and Plan: Patient has eschar tissue to the right heel please see the pictures on the computer. Wound care consult was placed. Further recommendation per wound care. (10) Anemia: Code(s): D64.9 - Anemia, unspecified Status: Acute Assessment and Plan: Continue to monitor. We have no previous labs. Additional Plan chronic sacral wound that is unstageable present on admission. Please see the pictures in the computer. Wound care consult has been placed. Status post debridement Surgical and wound care consult vancomycin and Zosyn. Pharmacy to dose. Follow culture results Subjective Date/time seen: 12/08/20 12:30 Interval history: Patient seen and examined Patient was admitted to the hospital has chest pain cardiology was consulted continue maximal medical treatment also patient has decubitus ulcer surgery was consulted debridement was done patient Also h/o dementia, diastolic CHF, PAD with a left AKA on chronic anticoagulation Patient underwent debridement of her sacral decubitus ulcer this morning by Dr. Garcia. On 12/08/2020 Had acute blood loss anemia probably related to surgery transfuse 1 unit of blood on 12/08/2020 Patient feels weak have upper extremity and lower extremity swelling Patient denies fever headache chest pain I am seeing the patient for anemia Exam Const: Other: Alert Chest no wheeze crackles Abdomen nontender nondistended CVS S1 + S2 Upper and Lower extremity edema Objective Data Vital Signs Vital Signs: Vital Signs - 24 hr 12/07/20 16:00 12/07/20 19:35 12/07/20 20:00 Temperature 97.5 F L 97.9 F Pulse Rate 75 73 69 Respiratory Rate 22 H 18 18 Blood Pressure 133/44 L 121/58 L Pulse Oximetry 100 100 12/07/20 21:20 12/07/20 22:05 12/07/20 22:38 Temperature Pulse Rate 72 Respiratory Rate Blood Pressure Pulse Oximetry 97 97 12/07/20 23:
[2020-12-08 13:09] LABS: Creatine Kinase 410 U/L (30-135)
[2020-12-08] MEDS: INSULIN ASPART (*BKC) 100 UNITS/ML SUB-Q ×2 (13:12→18:27)
[2020-12-08] MEDS: SODIUM CHLORIDE 0.9% IV 250 ML 30 ML IV CONT (15:40)
[2020-12-08 17:13] LABS: Glucose Point of Care 249 mg/dl (65-105)
[2020-12-08] MEDS: TUBING, BLOOD PLUM PUMP TUBING 1 EACH XX (18:29)
[2020-12-08] MEDS: WARFARIN (*PBKC) 3 MG TABLET 6 MG PO (18:29)
[2020-12-08] MEDS: THERAPEUTIC MULTIVITAMINS/MINERALS TAB (*BKC) 1 TABLET PO (18:30)
[2020-12-08] MEDS: ALBUMIN HUMAN 25% 25 GM/100 ML 100 ML IVPB (19:18)
[2020-12-08] MEDS: FUROSEMIDE INJ 40 MG/4 ML VIAL 20 MG IM (19:18)
[2020-12-08 20:16] LABS: Glucose Point of Care 228 mg/dl (65-105)
[2020-12-09] VITALS (12 sets, daily range): BP systolic 92–139; BP diastolic 40–77; PULSE 45–99; RESP 20–25; TEMP 35.6–36.7; O2SAT 93–99
[2020-12-09 06:57] LABS: Estimated CRCL calculation 20 ml/min; Estimated Glomerular Filt Rate 15
[2020-12-09 08:05] LABS: Basophils Absolute Auto 0.1 K/mm3 (0.0-0.1); Basophils Percent Auto 0.2 % (0.2-1.2); Hematocrit 21.9 % (37.0-47.0); Immature Granulocyte Absolute 0.36 K/mm3 (0.00-0.031); Immature Granulocyte Percent A 1.5 % (0-0.5); Lymphocytes Absolute Auto 2.49 K/mm3 (0.9-3.2); Lymphocytes Percent Auto 10.2 % (18.3-44.2); Mean Corpuscular Hemoglobin 30.3 pg (26-34); Mean Corpuscular Volume 94.8 fl (80-100); Mean Platelet Volume 9.6 fl (7.4-10.4); Monocytes Absolute Auto 1.1 K/mm3 (0.1-0.6); Monocytes Percent Auto 4.4 % (2.6-8.5); Neutrophils Absolute Auto 20.4 K/mm3 (1.3-6.7); Neutrophils Percent Auto 83.7 % (45.5-73.1); Nucleated Red Blood Cells Perc 0.1 % (0.0-0.2); Platelet Count Result 329 k/mm3 (150-375); Red Blood Count 2.31 M/mm3 (4.2-5.4); Red Cell Distribution Width 15.6 % (11.5-14.5); White Blood Count 24.4 K/mm3 (4.5-10.0)
[2020-12-09 08:06] LABS: Glucose Point of Care 217 mg/dl (65-105)
[2020-12-09 08:14] LABS: Anion Gap 10 mmol/L (8-16); Blood Urea Nitrogen 43 mg/dL (7-17); Calcium 7.7 mg/dL (8.4-10.2); Carbon Dioxide 23 mmol/L (22-30); Chloride 104 mmol/L (98-107); Estimated CRCL calculation 21 ml/min; Estimated Glomerular Filt Rate 16; Glucose 219 mg/dL (65-105); Potassium 4.3 mmol/L (3.4-5.0); Sodium 137 mmol/L (137-145)
[2020-12-09] MEDS: SODIUM CHLORIDE 0.9% IV 1,000 ML 100 ML IV CONT ×2 (08:42→18:20)
[2020-12-09] MEDS: ASPIRIN 81 MG ENTERIC TABLET PO (08:42)
[2020-12-09] MEDS: RANOLAZINE 500 MG TAB.ER.12H PO (08:43)
[2020-12-09] MEDS: DOCUSATE SODIUM 100 MG CAPSULE PO (08:43)
[2020-12-09] MEDS: ATORVASTATIN 20 MG TABLET PO (08:43)
[2020-12-09] MEDS: THERAPEUTIC MULTIVITAMINS/MINERALS TAB (*BKC) 1 TABLET PO (08:43)
[2020-12-09] MEDS: PANTOPRAZOLE 40 MG TABLET PO (08:43)
[2020-12-09] MEDS: levETIRAcetam 500 MG TABLET PO (08:43)
[2020-12-09] MEDS: dilTIAZem HCL CD 180 MG CAP.ER.24H PO (08:43)
[2020-12-09] MEDS: METOPROLOL TARTRATE 50 MG TAB PO (08:44)
[2020-12-09] MEDS: SOD HYPOCHLORITE 1/4 STRENGTH 473 ML 1 APPLIC TOPICAL ×2 (08:44→22:04)
[2020-12-09] MEDS: INSULIN ASPART (*BKC) 100 UNITS/ML SUB-Q ×3 (08:48→18:19)
[2020-12-09] MEDS: oxyCODONE/ACETAMINOPHEN (*CRX) 5-325 MG TABLET PO (09:17)
--- NOTE | 2020-12-09 11:57 | PM.IMPN ---
Progress Note: A&P Assessment and Plan (1) Chest pain: Code(s): R07.9 - Chest pain, unspecified Status: Acute Assessment and Plan: Patient had 3 nitroglycerins prior to coming to the hospital and stated that relieved her discomfort. 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 (2) CHF (congestive heart failure): Code(s): I50.9 - Heart failure, unspecified Status: Acute Assessment and Plan: Acute on top of chronic diastolic CHF exacerbation developed during hospitalization Worsening renal function DC diuretics (3) Chronic renal failure, stage 3 (moderate): Code(s): N18.30 - Chronic kidney disease, stage 3 unspecified Status: Chronic Assessment and Plan: Acute on top of chronic renal failure stage 3 Worsening today probable ATN. Nephrology was consulted renal ultrasound negative patient has Silver catheter started IV fluid (4) DM2 (diabetes mellitus, type 2): Code(s): E11.9 - Type 2 diabetes mellitus without complications Status: Chronic Assessment and Plan: Accu-Cheks AC and HS. Check A1c. (5) Seizure disorder: Code(s): G40.909 - Epilepsy, unspecified, not intractable, without status epilepticus Status: Chronic Assessment and Plan: Continue home medications. (6) Hypertension: Code(s): I10 - Essential (primary) hypertension Status: Chronic Assessment and Plan: Continue with home medications. (7) COPD (chronic obstructive pulmonary disease): Code(s): J44.9 - Chronic obstructive pulmonary disease, unspecified Status: Chronic Assessment and Plan: Continue with home medications. (8) Acute UTI: Code(s): N39.0 - Urinary tract infection, site not specified Status: Acute Assessment and Plan: Treated with IV antibiotics (9) Heel ulcer: Code(s): L97.409 - Non-pressure chronic ulcer of unspecified heel and midfoot with unspecified severity Status: Chronic Assessment and Plan: Patient has eschar tissue to the right heel please see the pictures on the computer. Wound care consult was placed. Further recommendation per wound care. (10) Anemia: Code(s): D64.9 - Anemia, unspecified Status: Acute Assessment and Plan: Continue to monitor. We have no previous labs. Additional Plan chronic sacral wound that is unstageable present on admission. Please see the pictures in the computer. Wound care consult has been placed. Status post debridement Surgical and wound care consult Treated with IV Zosyn and IV vancomycin. . Follow culture results Subjective Date/time seen: 12/09/20 11:57 Interval history: Patient seen and examined Patient was admitted to the hospital has chest pain cardiology was consulted continue maximal medical treatment also patient has decubitus ulcer surgery was consulted debridement was done patient Also h/o dementia, diastolic CHF, PAD with a left AKA on chronic anticoagulation Patient underwent debridement of her sacral decubitus ulcer this morning by Dr. Garcia. On 12/08/2020 Had acute blood loss anemia probably related to surgery transfuse 1 unit of blood on 12/08/2020 Patient feels weak have upper extremity and lower extremity swelling Creatinine today worsening patient is more confused Patient denies fever headache chest pain I am seeing the patient for anemia Exam Const: Other: Alert Chest no wheeze crackles Abdomen nontender nondistended CVS S1 + S2 Upper and Lower extremity edema Objective Data Vital Signs Vital Signs: Vital Signs - 24 hr 12/08/20 12:00 12/08/20 12:39 12/08/20 16:00 Temperature 96.7 F L Pulse Rate 69 68 64 Respiratory Rate 26 H Blood Pressure 100/79 Pulse Oximetry 95 12/08/20 16:05 12/08/20 16:20
[2020-12-09 12:24] LABS: Glucose Point of Care 236 mg/dl (65-105)
--- NOTE | 2020-12-09 12:41 | PM.PNGS ---
Progress Note: A&P Assessment and Plan (1) Decubitus ulcer of sacral region, unstageable: Onset Date: Unknown Code(s): L89.150 - Pressure ulcer of sacral region, unstageable Status: Chronic Assessment and Plan: Patient s/p sharp excisional debridement with findings of an extensive necrotic wound extending to the sacrum. This wound will likely need further debridement before gaining adequate control. I had a long discussion with the patient's son at the bedside regarding plan of care. The overall prognosis is poor even with aggressive therapy, which would require transfer to [place] for further wound debridement and management. The son discussed this with his siblings today and they have called back saying they want to continue with aggressive treatment. I have since called the Hospitalist and discussed this with them and that the patient will need to be acutely transferred to [place] for further care. Continue broad-spectrum IV antibiotics. Will continue with BID 1/4 strength Dakin's dressing changes while awaiting transfer. (2) Heel ulcer: Code(s): L97.409 - Non-pressure chronic ulcer of unspecified heel and midfoot with unspecified severity Status: Chronic Assessment and Plan: Unstageable right heel ulcer with firm, dry eschar overlying the wound bed. Stable. Continue local wound care with betadine swabs and pressure offloading. (3) Acute on chronic renal failure: Code(s): N17.9 - Acute kidney failure, unspecified; N18.9 - Chronic kidney disease, unspecified Status: Acute Assessment and Plan: Worsening renal failure with decreased urine output. Discussed this with the patient's son as well. They are still wanting aggressive treatment and would consider dialysis if this does not improve. (4) Leukocytosis: Code(s): D72.829 - Elevated white blood cell count, unspecified Status: Acute Assessment and Plan: WBC 24,000 today. Sacral decubitus ulcer is a likely source versus urinary. Will likely need further debridement to gain adequate control. Continue IV abx and trend labs. Hospitalist is working on transfer to [place]. (5) Acute UTI: Code(s): N39.0 - Urinary tract infection, site not specified Status: Acute Assessment and Plan: Urinalysis suggests UTI, urine culture pending. Could be contributing to leukocytosis. Continue IV abx and management per Hospitalist. (6) Anticoagulant long-term use: Code(s): Z79.01 - intermediate (current) use of anticoagulants Status: Acute (7) DM2 (diabetes mellitus, type 2): Code(s): E11.9 - Type 2 diabetes mellitus without complications Status: Chronic (8) CHF (congestive heart failure): Code(s): I50.9 - Heart failure, unspecified Status: Acute (9) COPD (chronic obstructive pulmonary disease): Code(s): J44.9 - Chronic obstructive pulmonary disease, unspecified Status: Chronic (10) Obesity, morbid, BMI 40.0-49.9: Code(s): E66.01 - Morbid (severe) obesity due to excess calories Status: Acute Additional Plan I discussed plan of care with Dr. Christina. Subjective Subjective Date/Time Seen: 12/09/20 12:41 Post Op day: 1 (Sharp excisional debridement of sacral decubitus ulcer) Patient reports: afebrile and other (low urine output) Interval history: Patient seen today. She is confused with underlying dementia. Denies pain. Son at the bedside. He states the family is planning to talk regarding continuing with aggressive treatment versus comfort measures today. Review of Systems Review of Systems: ROS unobtainable: Yes unobtainable due to mental status Exam Const: General: comfortable, no acute distress and awake Nutritional Appearance: obese Orientation/consciousness: confusion Skin: Other: Packing and dressing removed from large sacral decubitus ulcer. There is still a significant amount of slough and necrotic tissue in majority of the wound
--- NOTE | 2020-12-09 13:48 | WPDANESPN ---
Anes - Prog Note Post-Op Date/Time: 12/09/20 13:48 Cardiovascular status: normal Respiratory status: normal Airway patency: baseline Mental status: baseline Post-Op hydration status: normal Vital Signs: Last Vital Signs Temp 35.8 C L 12/09/20 12:30 Pulse 47 L 12/09/20 12:30 Resp 24 H 12/09/20 12:30 BP 100/42 L 12/09/20 12:30 Pulse Ox 99 12/09/20 12:30 Pain Score (VAS): 0/10. Patient resting in bed at time of assessment, appears comfortable. I/O: Intake & Output 12/08/20 12/09/20 12/09/20 23:59 07:59 15:59 Intake Total 477 700 60 Output Total 50 Balance 427 700 60 Laboratory Tests 12/09/20 06:28 12/09/20 06:29 12/08/20 12/08/20 12/08/20 10:33 16:34 20:15 WBC RBC Hgb Hct MCV MCH MCHC RDW Plt Count MPV Immature Gran % (Auto) Neut % (Auto) Lymph % (Auto) [place] % (Auto) Eos % (Auto) Baso % (Auto) Lymph # (Auto) [place] # (Auto) Eos # (Auto) Baso # (Auto) Abs Immat Gran (auto) Absolute Neuts (auto) Absolute Nucleated RBC Nucleated RBC % Sodium Potassium Chloride Carbon Dioxide Anion Gap BUN Creatinine Estim Creat Clear Calc Estimated GFR Glucose POC Capillary Glucose 249 H 228 H Calcium Blood Type O Positive Antibody Screen Negative Crossmatch See Detail 12/09/20 12/09/20 12/09/20 06:28 06:28 06:29 WBC 24.4 H RBC 2.31 L Hgb 7.0 L Hct 21.9 L MCV 94.8 MCH 30.3 MCHC 32.0 RDW 15.6 H Plt Count 329 MPV 9.6 Immature Gran % (Auto) 1.5 H Neut % (Auto) 83.7 H Lymph % (Auto) 10.2 L [place] % (Auto) 4.4 Eos % (Auto) 0.0 Baso % (Auto) 0.2 Lymph # (Auto) 2.49 [place] # (Auto) 1.1 H Eos # (Auto) 0.0 Baso # (Auto) 0.1 Abs Immat Gran (auto) 0.36 H Absolute Neuts (auto) 20.4 H Absolute Nucleated RBC 0.0 Nucleated RBC % 0.1 Sodium 137 Potassium 4.3 Chloride 104 Carbon Dioxide 23 Anion Gap 10 BUN 43 H Creatinine 3.50 H 3.70 H Estim Creat Clear Calc 21 20 Estimated GFR 16 L 15 L Glucose 219 H POC Capillary Glucose Calcium 7.7 L Blood Type Antibody Screen Crossmatch 12/09/20 12/09/20 08:04 11:58 WBC RBC Hgb Hct MCV MCH MCHC RDW Plt Count MPV Immature Gran % (Auto) Neut % (Auto) Lymph % (Auto) [place] % (Auto) Eos % (Auto) Baso % (Auto) Lymph # (Auto) [place] # (Auto) Eos # (Auto) Baso # (Auto) Abs Immat Gran (auto) Absolute Neuts (auto) Absolute Nucleated RBC Nucleated RBC % Sodium Potassium Chloride Carbon Dioxide Anion Gap BUN Creatinine Estim Creat Clear Calc Estimated GFR Glucose POC Capillary Glucose 217 H 236 H Calcium Blood Type Antibody Screen Crossmatch Microbiology 12/08/20 08:00 Decubitus Ulcer Anaerobic Culture - Preliminary Post-procedural complaints: none Patient Feedback: Patient satisfied with anesthetic care.
--- NOTE | 2020-12-09 15:51 | PM.CNNEP ---
Assessment and Plan Assessment and plan (1) JOSÉ (acute kidney injury): Code(s): N17.9 - Acute kidney failure, unspecified Status: Acute Assessment and Plan: suspect ATN due to: - relative hypotension - infection (wounds) with possible sepsis - possible pre-renal factors - diuretic use prior to admission renal ultrasound without obstruction check urine electrolytes and eosinophils trial of IVF resuscitation follow I/Os and repeat labs remains at risk for requiring SUCTION WORKER/dialysis (2) Chest pain: Code(s): R07.9 - Chest pain, unspecified Status: Acute Assessment and Plan: resolved Cardiology recommendations noted (3) Decubitus ulcer of sacral region, unstageable: Onset Date: Unknown Code(s): L89.150 - Pressure ulcer of sacral region, unstageable Status: Chronic Assessment and Plan: quite large and extensive s/p debridement by Surgery local wound care IV antibiotics (4) Anemia: Code(s): D64.9 - Anemia, unspecified Status: Acute Assessment and Plan: related to JOSÉ, CKD, and acute illness/infection follow trend may need Epogen hold off on checking iron studies as IV iron contraindicated with current infection Will continue to follow. History of Present Illness Reason for Consult Consult date: 12/09/20 Reason for consult: acute renal failure (on chronic kidney disease) Chief Complaint Chief complaint: Unstageable Sacral Decubitus Ulcer History of Present Illness Narrative: All the of the information I have obtained is from review of the electronic medical records as well as discussion with the nursing staff and physicians involved in her care as the patient is unable revised me with much history at this time due to her current status. The patient is a 75-year-old female with a past medical history as outlined below who presented to [facility] Emergency room from her nursing facility initially due to complaints of chest pain. On the day prior to admission she had an episode of chest pain that resolved with administration of sublingual nitro. She subsequently had another episode that required application of three sublingual nitro to resolve her chest pain. Given her extensive past medical history she was sent to the emergency room for further evaluation of this issue. Next Upon presentation to the emergency room, the patient denied any issues or complaints of chest pain. She is actually complaining more of abdominal pain at that time. She was otherwise hemodynamically stable and routine blood test were significant for some evidence of mild renal insufficiency but her CBC did demonstrate a significant leukocytosis. It was noted that she had some wounds on her lower extremities but also had a significant sacral decubitus ulcer as well. Due to these constellation of symptoms as well as these physical exam findings in association with her blood work, she was admitted the hospital for further evaluation and therapy Since her admission, she has been seen in consultation by Cardiology as well as General surgery and was recently taken to the OR for debridement of the significant an extremely large sacral decubitus ulcer which is unstageable. Meds she is on aggressive wound care as well as broad-spectrum IV antibiotic therapy as well for treatment of this issue. Unfortunately, is been noted since her admission, that her kidney function/ creatinine has been slowly deteriorating in association with worsening mentation. Renal consultation was requested due to her acute kidney injury on what appears to be chronic kidney disease.As mentioned above, over last few days her creatinine has been slowly rising since admission. Her creatinine on admission was 1.6 mg/dL and from what I can tell this is what it was running when she was previously hospitalized at [facility]
[2020-12-09 16:00] LABS: Glucose Point of Care 217 mg/dl (65-105)
--- NOTE | 2020-12-09 16:50 | ECG_ITS ---
Measurements Intervals [place] Rate: 47 P: 61 [place]: 161 QRS: 62 QRSD: 123 T: 53 QT: 541 QTc: 481 Interpretive Statements SINUS BRADYCARDIA WITH SINUS ARRHYTHMIA INTRAVENTRICULAR CONDUCTION DELAY PROLONGED QT INTERVAL BASELINE WANDER- V3-V5 ABNORMAL ECG Electronically Signed On 12-09-2020 17:41:41 CDT by Zion Saleh D.O.
[2020-12-09] MEDS: SODIUM CHLORIDE 0.9% IV 500 ML IV CONT (17:00)
[2020-12-09 17:31] LABS: Fractional Inspired Oxygen 32 %
[2020-12-09 17:46] LABS: Oxygen Saturation ABG 91.6 % (95.0-100.0); PO2 ABG 62.1 mmHg (80.0-100.0)
[2020-12-09 17:49] LABS: Device NASAL CANNULA; Modified Allen's Test Pass; Site Drawn RIGHT RADIAL
[2020-12-09 17:55] LABS: Base Excess ABG -3.1 mEq/l (+/-2.0); HCO3 ABG 21.7 mEq/l (22.0-26.0); PCO2 ABG 37.5 mmHg (35.0-45.0)
[2020-12-09 17:56] LABS: Lactic Acid Reflex 2.1 mmol/L (0.7-2.1)
[2020-12-09 17:56] LABS: Alveolar/Arterial O2 Gradient 122.2 mmHg; Oxygen Content ABG 10.1 %vol (16.0-22.0); Oxyhemoglobin 89.1 % THb (90.0-100.0); PO2 FiO2 Ratio Arterial Blood 1.94 %
[2020-12-09 18:08] LABS: Troponin I < 0.012 ng/mL (0.000-0.034)
--- NOTE | 2020-12-09 18:30 | PC.NURSE ---
Patient transferred to ICU for hypotension concerns, moved to ICU 1, report received from Elaina HOOK
--- NOTE | 2020-12-09 19:16 | PC.NURSE ---
This patient, Jolie Amador, was transferred to [ICU bed 1] on 12/09/20 at 1740. Personal belongings sent with patient. Report given to [Thang ]. Appropriate documentation sent with patient.
[2020-12-09 20:41] LABS: Reflex Lactic Acid Yes or No Add Lactic
[2020-12-09] MEDS: levETIRAcetam 500MG/NACL 100ML 500 MG/100 ML BAG 400 MG IVPB (21:09)
[2020-12-09 21:25] LABS: Troponin I < 0.012 ng/mL (0.000-0.034)
[2020-12-10] VITALS (14 sets, daily range): BP systolic 100–165; BP diastolic 58–90; PULSE 62–98; RESP 18–26; TEMP 36.2–36.8; O2SAT 94–99
[2020-12-10] MEDS: SODIUM CHLORIDE 0.9% IV 1,000 ML 100 ML IV CONT (06:20)
[2020-12-10 07:58] LABS: Glucose Point of Care 129 mg/dl (65-105)
[2020-12-10] MEDS: METOPROLOL TARTRATE 50 MG TAB PO ×2 (08:26→21:27)
[2020-12-10] MEDS: levETIRAcetam 500MG/NACL 100ML 500 MG/100 ML BAG 400 MG IVPB ×2 (08:26→21:26)
[2020-12-10] MEDS: PANTOPRAZOLE 40 MG TABLET PO (08:27)
[2020-12-10] MEDS: RANOLAZINE 500 MG TAB.ER.12H PO ×2 (08:27→19:42)
[2020-12-10] MEDS: ASPIRIN 81 MG ENTERIC TABLET PO (08:27)
[2020-12-10] MEDS: DOCUSATE SODIUM 100 MG CAPSULE PO (08:27)
[2020-12-10] MEDS: dilTIAZem HCL CD 180 MG CAP.ER.24H PO (08:27)
[2020-12-10] MEDS: ATORVASTATIN 20 MG TABLET PO (08:27)
[2020-12-10] MEDS: THERAPEUTIC MULTIVITAMINS/MINERALS TAB (*BKC) 1 TABLET PO (08:27)
[2020-12-10] MEDS: SOD HYPOCHLORITE 1/4 STRENGTH 473 ML 1 APPLIC TOPICAL (08:28)
--- NOTE | 2020-12-10 08:38 | WPDCNINT ---
Assessment and Plan Assessment and plan (1) Hypotension: Code(s): I95.9 - Hypotension, unspecified Status: Acute Assessment and Plan: Patient was transferred to the ICU for hypotension with 1 blood pressure reading of 90/42. She was given IV fluids bolus 500 mL x1 -continue maintenance IV fluid -blood pressures had remained stable, rather elevated this morning -lactic acid within normal limits, CT scan of the abdomen and pelvis did not show any acute processes, chest x-ray showed mild infiltrates, diffuse and patchy (2) Acute on chronic renal failure: Code(s): N17.9 - Acute kidney failure, unspecified; N18.9 - Chronic kidney disease, unspecified Status: Acute Assessment and Plan: Acute on chronic kidney disease could be multifactorial related to contrast induced nephropathy, hypovolemia, infection/sepsis -decreased urine output with elevated creatinine -patient has a history of stage 3 chronic kidney disease -appreciate nephrology following the patient, renal ultrasound without any hydronephrosis (3) Anemia: Code(s): D64.9 - Anemia, unspecified Status: Acute Assessment and Plan: Anemia of unknown cause, could be related to anemia of chronic kidney disease -will transfuse as required Maintain hemoglobin >8.0 - (4) Decubitus ulcer of sacral region, unstageable: Onset Date: Unknown Code(s): L89.150 - Pressure ulcer of sacral region, unstageable Status: Chronic Assessment and Plan: Patient has a debridement on 12/07 surgery team cannot offer any more procedures/surgical interventions have requested the patient be sent to [facility] (5) DM2 (diabetes mellitus, type 2): Code(s): E11.9 - Type 2 diabetes mellitus without complications Status: Chronic Assessment and Plan: Continue Accu-Cheks and sliding scale insulin Hemoglobin A1c this admission is 9.4 (6) Hypertension: Code(s): I10 - Essential (primary) hypertension Status: Chronic Assessment and Plan: Patient has a history of essential hypertension, will introduce antihypertensives gradually Additional Plan Discussed with patient and family and updated them with patient's condition and plan of care Code status: Full code Critical care time spent 41 minuites This dictation may have been done utilizing a voice recognition system. Attempts have been made to correct errors. However, there may be uncorrected grammatical, spelling, and recognition errors present. Due to a high probability of clinically significant, life threatening deterioration, the patient required my highest level of preparedness to intervene emergently and I personally spent this critical care time directly and personally managing the patient. This critical care time included obtaining a history; examining the patient; pulse oximetry; ordering and review of studies; arranging urgent treatment with development of a management plan; evaluation of patient's response to treatment; frequent reassessment; and discussions with other providers. It was exclusive of separately billable procedures and treating other patients and teaching time. Please see Assessment and Plan section and the rest of the note for further information on patient assessment and treatment Head Of [employer]ch[employer] Consult Note Consult date: 12/10/20 Time Seen: 07:10 Reason for consult: Acute kidney injury, sacral wound status post debridement, Angina, hypotension HPI: Jolie Amador is a 75 year old female artery disease, CHF, CKD stage 3, COPD, diabetes type 2, a sacral ulcer, history of seizure disorder, history of essential hypertension, blindness, history of abdominal surgeries presented to the ER from [facility] with complains of chest pain and was given nitroglycerin which appeared to resolve the chest pain. Sinus rhythm with ST-T abnormalities in the lateral lead, serial troponins were negative. Patient also diagnosed with UTI st
--- NOTE | 2020-12-10 09:20 | PC.NURSE ---
Pt received from ICU room 1. Pt oriented to the room.
--- NOTE | 2020-12-10 09:26 | PC.NURSE ---
Patient downgraded to [place] [facility], report given to MILADYS crenshaw. Moved to 248 at 0915 via bed with fluids continued, nasal cannula on at 3L.
--- NOTE | 2020-12-10 10:44 | PM.IMPN ---
Progress Note: A&P Assessment and Plan (1) Chest pain: Code(s): R07.9 - Chest pain, unspecified Status: Acute Assessment and Plan: Patient had 3 nitroglycerins prior to coming to the hospital and stated that relieved her discomfort. 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 (2) CHF (congestive heart failure): Code(s): I50.9 - Heart failure, unspecified Status: Acute Assessment and Plan: Acute on top of chronic diastolic CHF exacerbation developed during hospitalization Worsening renal function DC diuretics Started on gentle hydration (3) Chronic renal failure, stage 3 (moderate): Code(s): N18.30 - Chronic kidney disease, stage 3 unspecified Status: Chronic Assessment and Plan: Acute on top of chronic renal failure stage 3 Worsening today probable ATN. Nephrology was consulted renal ultrasound negative patient has Silver catheter started IV fluid Blood pressure improved DC IV fluid Pending final recommendation from Nephrology (4) DM2 (diabetes mellitus, type 2): Code(s): E11.9 - Type 2 diabetes mellitus without complications Status: Chronic Assessment and Plan: Accu-Cheks AC and HS. Check A1c. (5) Seizure disorder: Code(s): G40.909 - Epilepsy, unspecified, not intractable, without status epilepticus Status: Chronic Assessment and Plan: Continue home medications. (6) Hypertension: Code(s): I10 - Essential (primary) hypertension Status: Chronic Assessment and Plan: Continue with home medications. (7) COPD (chronic obstructive pulmonary disease): Code(s): J44.9 - Chronic obstructive pulmonary disease, unspecified Status: Chronic Assessment and Plan: Continue with home medications. (8) Acute UTI: Code(s): N39.0 - Urinary tract infection, site not specified Status: Acute Assessment and Plan: Treated with IV antibiotics (9) Heel ulcer: Code(s): L97.409 - Non-pressure chronic ulcer of unspecified heel and midfoot with unspecified severity Status: Chronic Assessment and Plan: Patient has eschar tissue to the right heel please see the pictures on the computer. Wound care consult was placed. Further recommendation per wound care. (10) Anemia: Code(s): D64.9 - Anemia, unspecified Status: Acute Assessment and Plan: Continue to monitor. We have no previous labs. (11) Hypotension: Code(s): I95.9 - Hypotension, unspecified Status: Acute Assessment and Plan: Secondary to hypovolemia treated with IV fluids resolved (12) Pneumonia: Code(s): J18.9 - Pneumonia, unspecified organism Status: Acute Assessment and Plan: Associated with acute and of chronic hypoxemic respiratory failure patient saturation drops to 88 without oxygen currently on oxygen and short of breath chest x-ray shows bilateral infiltrate Developed during hospitalization continue cefepime and doxycycline Check COVID-19 Additional Plan chronic sacral wound that is unstageable present on admission. Please see the pictures in the computer. Wound care consult has been placed. Status post debridement Surgical and wound care consult Treated with IV Zosyn and IV vancomycin. Twenty-two cefepime and doxycycline on 12/09/2020. Follow culture results Subjective Date/time seen: 12/10/20 10:44 Interval history: Patient seen and examined Patient was admitted to the hospital has chest pain cardiology was consulted continue maximal medical treatment also patient has decubitus ulcer surgery was consulted debridement was done patient Also h/o dementia, diastolic CHF, PAD with a left AKA on chronic anticoagulation Patient underwent debridement of her sacral decubitus ulcer thomas espinoza
--- NOTE | 2020-12-10 11:31 | PCDIET ---
Nutrition Follow-Up Complete: Nutrition Diagnosis: Inadequate oral intake related to multiple medical issues as evidenced by intake records. Nutrition Goal: Patient to consume 50% of meals/supplements or greater. Goal not met. Patient with minimal intake POD #2 s/p sharp excisional debridement of sacral decubitus. Patient confused on heart healthy diet. Recommend resuming Nepro (425kcal, 19g protein) with meals, as tolerated. If aggressive nutritional therapy is desired, recommend feeding tube placement. Nepro at goal of 45mL/hr x 22 hours/day will provide 1782kcal, 80g protein and 719mL free water. Suggest 30mL water flush every 4 hours. Last recorded weight is 141.8 kg. Recommend obtaining new weight. Bowel Motility: No BM documented as of yet. If medically appropriate, could consider adding medication to promote BM. Labs Reviewed: Glu (129) Meds Noted: Lipitor, Cardizem, Protonix, Cefepime, Colace, Ranexa, Vibramycin, NS at 100mL/hr, Humalog Mix 75/25, Lopressor, MVI/minerals Additional Notes: Will continue to monitor. New goal: patient to meet estimated nutritional needs. Nutrition Monitoring and Evaluation: Follow up every 5 days.
[2020-12-10 13:03] LABS: Creatinine Urine 132.7 mg/dL; Total Protein Urine Random 176 mg/dL; Ur Ttl Prot Creatinine Ratio 1.33 mg/mg (0-0.20); Urea Random Urine 253 MG/DL
--- NOTE | 2020-12-10 13:03 | P.PNNP_ITS ---
Progress Note: A&P Assessment and Plan (1) JOSÉ (acute kidney injury): Code(s): N17.9 - Acute kidney failure, unspecified Status: Acute Assessment and Plan: * suspect ATN due to: - relative hypotension - infection (wounds) with possible sepsis - possible pre-renal factors - diuretic use prior to admission * renal ultrasound without obstruction * check urine electrolytes and eosinophils * trial of IVF resuscitation * follow I/Os and repeat labs * remains at risk for requiring STRUCTURAL ENGINEER/dialysis * check labs today (2) Chest pain: Code(s): R07.9 - Chest pain, unspecified Status: Acute Assessment and Plan: * resolved (3) Decubitus ulcer of sacral region, unstageable: Onset Date: Unknown Code(s): L89.150 - Pressure ulcer of sacral region, unstageable Status: Chronic Assessment and Plan: * quite large and extensive * s/p debridement by Surgery * local wound care * on cefepime and doxycycline (4) Anemia: Code(s): D64.9 - Anemia, unspecified Status: Acute Assessment and Plan: * related to JOSÉ, CKD, and acute illness/infection * follow trend * may need Epogen * hold off on checking iron studies as IV iron contraindicated with current infection Subjective Date/time seen: 12/10/20 13:03 Interval history: patient is lying in her bed comfortably confused. Exam Narrative: Exam Narrative: GENERAL APPEARANCE: chronically ill appearing female laying in bed in no acute distress HEENT: normocephalic, atraumatic, normal conjunctiva and sclera, nares patient NECK: no lymphadenopathy, thyromegaly, or JVD MOUTH: normal lips, teeth, and gums CARDIOVASCULAR: RRR, normal S1 and S2, no rub or gallop RESPIRATORY: clear ABDOMEN: soft, nontender, nondistended, positive bowel sounds present EXTREMITIES: trace edema; left AKA and right heel ulceration Objective Data Vital Signs Vital Signs: Vital Signs - 24 hr 12/09/20 16:00 12/09/20 16:36 12/09/20 18:15 Temperature 35.6 C L Pulse Rate 46 L 46 L 65 Respiratory Rate 20 20 25 H Blood Pressure 92/40 L 139/50 L Pulse Oximetry 93 96 96 12/09/20 19:49 12/09/20 20:00 12/10/20 00:00 Temperature 36.4 C Pulse Rate 62 62 68 Respiratory Rate 22 H 20 Blood Pressure 128/62 136/71 Pulse Oximetry 93 97 12/10/20 02:00 12/10/20 04:00 12/10/20 06:00 Temperature 36.2 C L 36.8 C 36.3 C L Pulse Rate 68 68 98 Respiratory Rate 18 20 18 Blood Pressure 100/58 L 113/69 140/71 Pulse Oximetry 94 95 97 12/10/20 07:33 12/10/20 08:00 12/10/20 08:26 Temperature 36.6 C Pulse Rate 73 79 71 Respiratory Rate 20 26 H Blood Pressure 140/71 Pulse Oximetry 97 95 12/10/20 08:38 Temperature Pulse Rate 79 Respiratory Rate 25 H Blood Pressure 165/60 H Pulse Oximetry 95 Intake/Output Intake/Output: Intake & Output 12/07/20 12/08/20 12/09/20 12/10/20 23:59 23:59 23:59 23:59 Intake Total 852 719 0499 1250 Output Total 1075 90 0 30 Balance -350 481 4673 1220 M
--- NOTE | 2020-12-10 13:03 | PM.PNNEP ---
Progress Note: A&P Assessment and Plan (1) JOSÉ (acute kidney injury): Code(s): N17.9 - Acute kidney failure, unspecified Status: Acute Assessment and Plan: suspect ATN due to: - relative hypotension - infection (wounds) with possible sepsis - possible pre-renal factors - diuretic use prior to admission renal ultrasound without obstruction check urine electrolytes and eosinophils trial of IVF resuscitation follow I/Os and repeat labs remains at risk for requiring CAR HOSTLER/dialysis check labs today (2) Chest pain: Code(s): R07.9 - Chest pain, unspecified Status: Acute Assessment and Plan: resolved (3) Decubitus ulcer of sacral region, unstageable: Onset Date: Unknown Code(s): L89.150 - Pressure ulcer of sacral region, unstageable Status: Chronic Assessment and Plan: quite large and extensive s/p debridement by Surgery local wound care on cefepime and doxycycline (4) Anemia: Code(s): D64.9 - Anemia, unspecified Status: Acute Assessment and Plan: related to JOSÉ, CKD, and acute illness/infection follow trend may need Epogen hold off on checking iron studies as IV iron contraindicated with current infection Subjective Date/time seen: 12/10/20 13:03 Interval history: patient is lying in her bed comfortably confused. Exam Narrative: Exam Narrative: GENERAL APPEARANCE: chronically ill appearing female laying in bed in no acute distress HEENT: normocephalic, atraumatic, normal conjunctiva and sclera, nares patient NECK: no lymphadenopathy, thyromegaly, or JVD MOUTH: normal lips, teeth, and gums CARDIOVASCULAR: RRR, normal S1 and S2, no rub or gallop RESPIRATORY: clear ABDOMEN: soft, nontender, nondistended, positive bowel sounds present EXTREMITIES: trace edema; left AKA and right heel ulceration Objective Data Vital Signs Vital Signs: Vital Signs - 24 hr 12/09/20 16:00 12/09/20 16:36 12/09/20 18:15 Temperature 35.6 C L Pulse Rate 46 L 46 L 65 Respiratory Rate 20 20 25 H Blood Pressure 92/40 L 139/50 L Pulse Oximetry 93 96 96 12/09/20 19:49 12/09/20 20:00 12/10/20 00:00 Temperature 36.4 C Pulse Rate 62 62 68 Respiratory Rate 22 H 20 Blood Pressure 128/62 136/71 Pulse Oximetry 93 97 12/10/20 02:00 12/10/20 04:00 12/10/20 06:00 Temperature 36.2 C L 36.8 C 36.3 C L Pulse Rate 68 68 98 Respiratory Rate 18 20 18 Blood Pressure 100/58 L 113/69 140/71 Pulse Oximetry 94 95 97 12/10/20 07:33 12/10/20 08:00 12/10/20 08:26 Temperature 36.6 C Pulse Rate 73 79 71 Respiratory Rate 20 26 H Blood Pressure 140/71 Pulse Oximetry 97 95 12/10/20 08:38 Temperature Pulse Rate 79 Respiratory Rate 25 H Blood Pressure 165/60 H Pulse Oximetry 95 Intake/Output Intake/Output: Intake & Output 12/07/20 12/08/20 12/09/20 12/10/20 23:59 23:59 23:59 23:59 Intake Total 638 637 8082 1250 Output Total 1075 90 0 30 Balance -160 718 6412 1220 Meds/Results Medications: Active Medications Generic Name Dose Route Start Last Admin Trade Name Freq PRN Reason Stop Dose Admin Albuterol 2.5 mg 12/07/20 00:07 Albuterol Sulfate Neb 2.5 Mg/0.5 Ml Inh INHALATION Q6H PRN Shortness Of Breath Aspirin 81 mg 12/07/20 09:00 12/10/20 08:27 Aspirin 81 Mg Enteric Tablet PO 81 mg DAILY ERIKA Administration Atorvastatin Calcium 20 mg 12/09/20 09:00 12/10/20 08:27 Atorvastatin 20 Mg Tablet PO 20 mg QAM ERIKA Administration Dextrose 12.5 gm 12/06/20 21:46 Dextrose 50% 25 Gm/50 Ml Syringe IV PUSH PRN PRN Hypoglycemia Protocol Diltiazem HCl 180 mg 12/07/20 09:00 12/10/20 08:27 Diltiazem Hcl Cd 180 Mg Cap.Er.24h PO 180 mg DAILY ERIKA Administration Docusate Sodium 100 mg 12/07/20 09:00 12/10/20 08:27 Docusate Sodium 100 Mg Capsule PO 100 mg DAILY ERIKA Administr
[2020-12-10] MEDS: LORazepam INJ (*CRX) 2 MG/ML VIAL 0.5 MG IM (13:12)
--- NOTE | 2020-12-10 13:30 | PC.NURSE ---
Pt transferred to med/surg room 302. Belongings moved with patient.
[2020-12-10 13:35] LABS: Sodium Urine Random 17 meq/L
[2020-12-10 13:45] LABS: Eosinophil Urine None Seen % (None Seen)
[2020-12-10 14:06] LABS: Alanine Aminotransferase 89 U/L (4-35); Albumin Level 2.4 g/dL (3.5-5.1); Alkaline Phosphatase 116 U/L (38-126); Anion Gap 9 mmol/L (8-16); Aspartate Amino Transferase 120 U/L (14-36); Bilirubin,Total 0.3 mg/dL (0.2-1.3); Blood Urea Nitrogen 47 mg/dL (7-17); Calcium 7.5 mg/dL (8.4-10.2); Carbon Dioxide 23 mmol/L (22-30); Chloride 106 mmol/L (98-107); Estimated CRCL calculation 17 ml/min; Estimated Glomerular Filt Rate 13; Glucose 104 mg/dL (65-105); Potassium 4.1 mmol/L (3.4-5.0); Sodium 138 mmol/L (137-145)
--- NOTE | 2020-12-10 14:51 | ADMGEN ---
This patient, Jolie Amador, was admitted to 3 [facility] Surg Room 302-01 at [address] [place] [address]. Report received from MILADYS Henry. Patient/family oriented to hospital policies and general routines including ID bracelet, bed and alarms, visiting hours, pain management, procedures, bathroom and other care routines, personal items, smoking policy, room service/diet, and visiting hours. Information on how to activate the Rapid Response Team has been discussed. Patient/Family are encouraged to report perceived risks to care and to ask questions if they do not understand what they are told or what they should do.
[2020-12-10 14:54] LABS: Glucose Point of Care 81 mg/dl (65-105)
[2020-12-10 15:17] LABS: Hematocrit 23.3 % (37.0-47.0); Hemoglobin 7.6 g/dL (12.0-15.0); Mean Corpuscular HGB Conc 32.6 g/dl (32-36); Mean Corpuscular Hemoglobin 30.3 pg (26-34); Mean Corpuscular Volume 92.8 fl (80-100); Mean Platelet Volume 8.9 fl (7.4-10.4); Platelet Count Result 372 k/mm3 (150-375); Red Blood Count 2.51 M/mm3 (4.2-5.4); Red Cell Distribution Width 15.5 % (11.5-14.5); White Blood Count 22.7 K/mm3 (4.5-10.0)
[2020-12-10 15:40] LABS: Anisocytosis 2+ (NORMAL); Band Neutrophils Percent 2 % (0-6); Lymphocytes Absolute Manual 2.04 K/mm3 (1.1-4.5); Monocytes Absolute Manual 0.68 K/mm3 (0.1-0.90); Monocytes Percent Manual 3 % (3-9); Neutrophils Absolute Manual 19.97 K/mm3 (1.7-7.2); Neutrophils Percent Manual 86 % (46-73); Platelet Estimate Adequate (Adequate); Total Cells Counted 100
[2020-12-10] MEDS: DEXTROSE 50% 25 GM/50 ML SYRINGE IV PUSH (17:34)
[2020-12-10 17:46] LABS: Glucose Point of Care 51 mg/dl (65-105)
[2020-12-10 18:08] LABS: Glucose Point of Care 77 mg/dl (65-105)
[2020-12-10] MEDS: WARFARIN (*PBKC) 3 MG TABLET 6 MG PO (19:41)
[2020-12-10] MEDS: GLUCOSE ORAL GEL 15 GM OF GLUCSE IN 37.5 GM TUBE PO (21:36)
[2020-12-10 22:35] LABS: Glucose Point of Care 64 mg/dl (65-105)
[2020-12-10 22:35] LABS: Glucose Point of Care 79 mg/dl (65-105)
[2020-12-11] VITALS (9 sets, daily range): BP systolic 129–148; BP diastolic 66–94; PULSE 64–89; RESP 18–22; TEMP 35.9–36.4; O2SAT 92–97
[2020-12-11 08:14] LABS: Glucose Point of Care 57 mg/dl (65-105)
[2020-12-11 08:25] LABS: Basophils Percent Auto 0.2 % (0.2-1.2); Eosinophils Absolute Auto 0.3 K/mm3 (0-0.3); Eosinophils Percent Auto 1.2 % (0-4.4); Hematocrit 25.7 % (37.0-47.0); Hemoglobin 8.1 g/dL (12.0-15.0); Immature Granulocyte Absolute 0.52 K/mm3 (0.00-0.031); Immature Granulocyte Percent A 2.5 % (0-0.5); Lymphocytes Absolute Auto 2.61 K/mm3 (0.9-3.2); Lymphocytes Percent Auto 12.8 % (18.3-44.2); Mean Corpuscular HGB Conc 31.5 g/dl (32-36); Mean Corpuscular Hemoglobin 29.8 pg (26-34); Mean Corpuscular Volume 94.5 fl (80-100); Monocytes Absolute Auto 1.2 K/mm3 (0.1-0.6); Monocytes Percent Auto 5.7 % (2.6-8.5); Neutrophils Absolute Auto 15.9 K/mm3 (1.3-6.7); Neutrophils Percent Auto 77.6 % (45.5-73.1); Nucleated Red Blood Cells Absolute Auto 0.1 K/mm3 (0.0-0.012); Nucleated Red Blood Cells Perc 0.4 % (0.0-0.2); Red Blood Count 2.72 M/mm3 (4.2-5.4); Red Cell Distribution Width 15.7 % (11.5-14.5); White Blood Count 20.4 K/mm3 (4.5-10.0)
--- NOTE | 2020-12-11 08:31 | PM.IMPN ---
Progress Note: A&P Assessment and Plan (1) Chest pain: Code(s): R07.9 - Chest pain, unspecified Status: Acute Assessment and Plan: Patient had 3 nitroglycerins prior to coming to the hospital and stated that relieved her discomfort. 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 (2) CHF (congestive heart failure): Code(s): I50.9 - Heart failure, unspecified Status: Acute Assessment and Plan: Acute on top of chronic diastolic CHF exacerbation developed during hospitalization Worsening renal function DC diuretics Started on gentle hydration (3) Chronic renal failure, stage 3 (moderate): Code(s): N18.30 - Chronic kidney disease, stage 3 unspecified Status: Chronic Assessment and Plan: Acute on top of chronic renal failure stage 3 Worsening today probable ATN. Nephrology was consulted renal ultrasound negative patient has Silver catheter started IV fluid Blood pressure improved DC IV fluid Pending final recommendation from Nephrology (4) DM2 (diabetes mellitus, type 2): Code(s): E11.9 - Type 2 diabetes mellitus without complications Status: Chronic Assessment and Plan: Accu-Cheks AC and HS. Check A1c. (5) Seizure disorder: Code(s): G40.909 - Epilepsy, unspecified, not intractable, without status epilepticus Status: Chronic Assessment and Plan: Continue home medications. (6) Hypertension: Code(s): I10 - Essential (primary) hypertension Status: Chronic Assessment and Plan: Continue with home medications. (7) COPD (chronic obstructive pulmonary disease): Code(s): J44.9 - Chronic obstructive pulmonary disease, unspecified Status: Chronic Assessment and Plan: Continue with home medications. (8) Acute UTI: Code(s): N39.0 - Urinary tract infection, site not specified Status: Acute Assessment and Plan: Treated with IV antibiotics (9) Heel ulcer: Code(s): L97.409 - Non-pressure chronic ulcer of unspecified heel and midfoot with unspecified severity Status: Chronic Assessment and Plan: Patient has eschar tissue to the right heel please see the pictures on the computer. Wound care consult was placed. Further recommendation per wound care. (10) Anemia: Code(s): D64.9 - Anemia, unspecified Status: Acute Assessment and Plan: Continue to monitor. We have no previous labs. (11) Hypotension: Code(s): I95.9 - Hypotension, unspecified Status: Acute Assessment and Plan: Secondary to hypovolemia treated with IV fluids resolved (12) Pneumonia: Code(s): J18.9 - Pneumonia, unspecified organism Status: Acute Assessment and Plan: Associated with acute and of chronic hypoxemic respiratory failure patient saturation drops to 88 without oxygen currently on oxygen and short of breath chest x-ray shows bilateral infiltrate Developed during hospitalization continue cefepime and doxycycline Pending COVID-19 Subjective Date/time seen: 12/11/20 08:31 Interval history: Patient seen and examined Patient was admitted to the hospital has chest pain cardiology was consulted continue maximal medical treatment also patient has decubitus ulcer surgery was consulted debridement was done patient Also h/o dementia, diastolic CHF, PAD with a left AKA on chronic anticoagulation Patient underwent debridement of her sacral decubitus ulcer this morning by Dr. Garcia. On 12/08/2020 Had acute blood loss anemia probably related to surgery transfuse 1 unit of blood on 12/08/2020 On 12/09/2020 Patient has episode of hypotension and bradycardia was transferred to ICU because of hypotension and worsening renal function started on IV fluid probably hypotension is related to medicat
[2020-12-11 08:41] LABS: Alanine Aminotransferase 87 U/L (4-35); Albumin Level 2.8 g/dL (3.5-5.1); Alkaline Phosphatase 116 U/L (38-126); Anion Gap 8 mmol/L (8-16); Aspartate Amino Transferase 69 U/L (14-36); Bilirubin,Total 0.4 mg/dL (0.2-1.3); Blood Urea Nitrogen 50 mg/dL (7-17); Calcium 7.7 mg/dL (8.4-10.2); Carbon Dioxide 24 mmol/L (22-30); Chloride 106 mmol/L (98-107); Estimated CRCL calculation 17 ml/min; Estimated Glomerular Filt Rate 12; Glucose 57 mg/dL (65-105); Phosphorus 5.2 mg/dL (2.5-4.5); Potassium 3.9 mmol/L (3.4-5.0); Sodium 138 mmol/L (137-145)
[2020-12-11] MEDS: levETIRAcetam 500MG/NACL 100ML 500 MG/100 ML BAG 400 MG IVPB ×2 (08:42→20:44)
[2020-12-11] MEDS: THERAPEUTIC MULTIVITAMINS/MINERALS TAB (*BKC) 1 TABLET PO (08:47)
[2020-12-11] MEDS: dilTIAZem HCL CD 180 MG CAP.ER.24H PO (08:47)
[2020-12-11] MEDS: METOPROLOL TARTRATE 50 MG TAB PO ×2 (08:47→20:44)
[2020-12-11] MEDS: DOCUSATE SODIUM 100 MG CAPSULE PO (08:47)
[2020-12-11] MEDS: ATORVASTATIN 20 MG TABLET PO (08:47)
[2020-12-11] MEDS: PANTOPRAZOLE 40 MG TABLET PO (08:47)
[2020-12-11] MEDS: RANOLAZINE 500 MG TAB.ER.12H PO ×2 (08:47→18:14)
[2020-12-11] MEDS: ASPIRIN 81 MG ENTERIC TABLET PO (08:47)
--- NOTE | 2020-12-11 10:14 | PM.PNNEP ---
Progress Note: A&P Assessment and Plan (1) JOSÉ (acute kidney injury): Code(s): N17.9 - Acute kidney failure, unspecified Status: Acute Assessment and Plan: suspect ATN due to: - relative hypotension - infection (wounds) with possible sepsis - possible pre-renal factors - diuretic use prior to admission renal ultrasound without obstruction check urine electrolytes and eosinophils trial of IVF resuscitation follow I/Os and repeat labs Creatinine is slowly rising. Rate of rise is decreasing. (2) Chest pain: Code(s): R07.9 - Chest pain, unspecified Status: Acute Assessment and Plan: resolved (3) Decubitus ulcer of sacral region, unstageable: Onset Date: Unknown Code(s): L89.150 - Pressure ulcer of sacral region, unstageable Status: Chronic Assessment and Plan: quite large and extensive s/p debridement by Surgery earlier this week. No fevers. local wound care on cefepime and doxycycline (4) Anemia: Code(s): D64.9 - Anemia, unspecified Status: Acute Assessment and Plan: related to JOSÉ, CKD, and acute illness/infection follow trend may need Epogen hold off on checking iron studies as IV iron contraindicated with current infection Subjective Date/time seen: 12/11/20 10:14 Interval history: patient is lying in her bed comfortably Exam Narrative: Exam Narrative: GENERAL APPEARANCE: chronically ill appearing female laying in bed in no acute distress HEENT: normocephalic, atraumatic, normal conjunctiva and sclera, nares patient SKIN: no rash CARDIOVASCULAR: RRR, normal S1 and S2, no rub or gallop RESPIRATORY: clear bilaterally ABDOMEN: soft, nontender, nondistended, positive bowel sounds present EXTREMITIES: trace edema; left AKA and right heel ulceration Objective Data Vital Signs Vital Signs: Vital Signs - 24 hr 12/10/20 13:45 12/10/20 14:00 12/10/20 16:00 Temperature 36.8 C 36.7 C Pulse Rate 70 73 Respiratory Rate 24 H 20 Blood Pressure 129/72 113/78 Pulse Oximetry 96 99 95 12/10/20 20:00 12/10/20 21:00 12/10/20 21:27 Temperature 36.7 C Pulse Rate 72 76 81 Respiratory Rate 20 Blood Pressure 137/90 Pulse Oximetry 94 12/11/20 00:00 12/11/20 04:00 12/11/20 06:00 Temperature 36.2 C L 36.4 C L Pulse Rate 78 74 89 Respiratory Rate 22 H 18 Blood Pressure 129/94 H 129/94 H Pulse Oximetry 93 97 12/11/20 08:00 12/11/20 08:30 Temperature 35.9 C L Pulse Rate 80 Respiratory Rate 20 Blood Pressure 135/75 Pulse Oximetry 95 94 Intake/Output Intake/Output: Intake & Output 12/08/20 12/09/20 12/10/20 12/11/20 23:59 23:59 23:59 23:59 Intake Total 607 2570 1450 320 Output Total 90 0 230 400 Balance 517 2570 1220 -80 Meds/Results Medications: Active Medications Generic Name Dose Route Start Last Admin Trade Name Freq PRN Reason Stop Dose Admin Albuterol 2.5 mg 12/07/20 00:07 Albuterol Sulfate Neb 2.5 Mg/0.5 Ml Inh INHALATION Q6H PRN Shortness Of Breath Aspirin 81 mg 12/07/20 09:00 12/11/20 08:47 Aspirin 81 Mg Enteric Tablet PO 81 mg DAILY ERIKA Administration Atorvastatin Calcium 20 mg 12/09/20 09:00 12/11/20 08:47 Atorvastatin 20 Mg Tablet PO 20 mg QAM ERIKA Administration Dextrose 12.5 gm 12/06/20 21:46 12/10/20 17:34 Dextrose 50% 25 Gm/50 Ml Syringe IV PUSH 12.5 gm PRN PRN Administration Hypoglycemia Protocol Diltiazem HCl 180 mg 12/07/20 09:00 12/11/20 08:47 Diltiazem Hcl Cd 180 Mg Cap.Er.24h PO 180 mg DAILY ERIKA Administration Docusate Sodium 100 mg 12/07/20 09:00 12/11/20 08:47 Docusate Sodium 100 Mg Capsule PO 100 mg DAILY ERIKA Administration Glucagon 1 mg 12/06/20 21:46 Glucagon For Inj 1 Mg Vial IM PRN PRN Hypoglycemia Protocol Glucose 15 gm 12/06/20 21:46 12/10/20 21:36 Glucose Or
[2020-12-11 10:31] LABS: Platelet Clumps Present; Platelet Estimate Adequate (Adequate)
[2020-12-11 11:27] LABS: INR 6.1
[2020-12-11 11:47] LABS: Glucose Point of Care 98 mg/dl (65-105)
[2020-12-11] MEDS: SOD HYPOCHLORITE 1/4 STRENGTH 473 ML 1 APPLIC TOPICAL (12:06)
--- NOTE | 2020-12-11 12:17 | PM.DS ---
DS: Admitting Diagnosis Admitting Diagnosis Admitting Diagnosis: Chest pain generalized DS: Discharge Diagnosis Discharge Diagnosis (1) Chest pain: Code(s): R07.9 - Chest pain, unspecified Status: Acute Assessment and Plan: Patient had 3 nitroglycerins prior to coming to the hospital and stated that relieved her discomfort. 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 Also demand ischemia secondary to CHF (2) CHF (congestive heart failure): Code(s): I50.9 - Heart failure, unspecified Status: Acute Assessment and Plan: Acute on top of chronic diastolic CHF exacerbation developed during hospitalization Worsening renal function DC diuretics S treated with gentle hydration (3) Chronic renal failure, stage 3 (moderate): Code(s): N18.30 - Chronic kidney disease, stage 3 unspecified Status: Chronic Assessment and Plan: Acute on top of chronic renal failure stage 3 Worsening today probable ATN. Nephrology was consulted renal ultrasound negative patient has Silver catheter started IV fluid Blood pressure improved DC IV fluid Daily evaluation for the need of dialysis (4) DM2 (diabetes mellitus, type 2): Code(s): E11.9 - Type 2 diabetes mellitus without complications Status: Chronic Assessment and Plan: Accu-Cheks AC and HS. Insulin sliding scale Patient had episodes of hypoglycemia Home oral medication was held. (5) Seizure disorder: Code(s): G40.909 - Epilepsy, unspecified, not intractable, without status epilepticus Status: Chronic Assessment and Plan: Continue home medications. (6) Hypertension: Code(s): I10 - Essential (primary) hypertension Status: Chronic Assessment and Plan: Avoid Mathieu or Arb because of acute renal failure (7) COPD (chronic obstructive pulmonary disease): Code(s): J44.9 - Chronic obstructive pulmonary disease, unspecified Status: Chronic Assessment and Plan: Continue with home medications. (8) Acute UTI: Code(s): N39.0 - Urinary tract infection, site not specified Status: Acute Assessment and Plan: Treated with IV antibiotics (9) Heel ulcer: Code(s): L97.409 - Non-pressure chronic ulcer of unspecified heel and midfoot with unspecified severity Status: Chronic Assessment and Plan: Patient has eschar tissue to the right heel Wound care consult was placed. Further recommendation per wound care. (10) Anemia: Code(s): D64.9 - Anemia, unspecified Status: Acute Assessment and Plan: Continue to monitor. Transfuse if hemoglobin below 7. (11) Hypotension: Code(s): I95.9 - Hypotension, unspecified Status: Acute Assessment and Plan: Secondary to hypovolemia treated with IV fluids resolved (12) Pneumonia: Code(s): J18.9 - Pneumonia, unspecified organism Status: Acute Assessment and Plan: Associated with acute and of chronic hypoxemic respiratory failure patient saturation drops to 88 without oxygen currently on oxygen and short of breath chest x-ray shows bilateral infiltrate Developed during hospitalization continue cefepime and doxycycline Pending COVID-19 75 years old female with past medical history of hypertension CHF morbid obesity peripheral vascular disease decubitus ulcer presented to the hospital with chest pain generalized weakness was found to have acute CHF exacerbation decubitus ulcer required debridement and also for chest pain cardiology was consulted probably patient has microvascular coronary artery disease follow-up with PCP and Cardiology as outpatient as patient has complicated decubitus ulcer plan to transfer for tertiary center for further recommendation INR supratherapeutic vitamin K 2.5 was given
--- NOTE | 2020-12-11 12:53 | PM.TDS ---
Transfer Discharge Sum: Prov Provider Date of admission: 12/07/20 10:07 Primary care physician: Leonidas Arora, Admitting clinician: Wendy Paulino MD Consults: 12/07/20 Consult to Physician Routine Comment: CALLED OFFICE WITH CONSULT INFORMATON Consulting Provider: Darío Christina scalloper/MD group to consult: SURGERY Reason for consultation: Coccyx wound Has provider been notified: Yes Consult to Physician Routine Comment: CALLED JESSICA Godoy WITH CONSULT INFORMATION Consulting Provider: Osiris Leigh scalloper/MD group to consult: [facility] Reason for consultation: Chest Pain Has provider been notified: Yes 12/07/20 09:00 Wound/ET Consult Routine Reason for Consult:: huge decub on coccyx, nectrotic area on rt heel 12/09/20 Consult to Physician Routine Comment: Consulting Provider: Ray Gates Reason for consultation: Acute renal failure Has provider been notified: Yes Consult to Physician Routine Comment: Consulting Provider: Katie Deshpande Reason for consultation: hypotension Has provider been notified: Yes Consult to Physician Routine Comment: OFFICE NOTIFIED OF CONSULT Consulting Provider: Ray Gates Reason for consultation: renal failure Has provider been notified: Yes Receiving physician/facility: [facility] DS: Admitting Diagnosis Admitting Diagnosis Admitting Diagnosis: Chest pain generalized weakness DS: Discharge Diagnosis Discharge Diagnosis (1) Chest pain: Code(s): R07.9 - Chest pain, unspecified Status: Acute Assessment and Plan: Patient had 3 nitroglycerins prior to coming to the hospital and stated that relieved her discomfort. 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 Also demand ischemia secondary to CHF (2) CHF (congestive heart failure): Code(s): I50.9 - Heart failure, unspecified Status: Acute Assessment and Plan: Acute on top of chronic diastolic CHF exacerbation developed during hospitalization Worsening renal function DC diuretics S treated with gentle hydration (3) Chronic renal failure, stage 3 (moderate): Code(s): N18.30 - Chronic kidney disease, stage 3 unspecified Status: Chronic Assessment and Plan: Acute on top of chronic renal failure stage 3 Worsening today probable ATN. Nephrology was consulted renal ultrasound negative patient has Silver catheter started IV fluid Blood pressure improved DC IV fluid Daily evaluation for the need of dialysis (4) DM2 (diabetes mellitus, type 2): Code(s): E11.9 - Type 2 diabetes mellitus without complications Status: Chronic Assessment and Plan: Accu-Cheks AC and HS. Insulin sliding scale Patient had episodes of hypoglycemia Home oral medication was held. (5) Seizure disorder: Code(s): G40.909 - Epilepsy, unspecified, not intractable, without status epilepticus Status: Chronic Assessment and Plan: Continue home medications. (6) Hypertension: Code(s): I10 - Essential (primary) hypertension Status: Chronic Assessment and Plan: Avoid Mathieu or Arb because of acute renal failure (7) COPD (chronic obstructive pulmonary disease): Code(s): J44.9 - Chronic obstructive pulmonary disease, unspecified Status: Chronic Assessment and Plan: Continue with home medications. (8) Acute UTI: Code(s): N39.0 - Urinary tract infection, site not specified Status: Acute Assessment and Plan: Treated with IV antibiotics (9) Heel ulcer: Code(s): L97.409 - Non-pressure chronic ulcer of unspecified heel and midfoot with unspecified severity Status: Chronic Assessment and Plan: Patient has eschar tissue to the right heel Wound care consult was placed.
[2020-12-11 17:39] LABS: Glucose Point of Care 75 mg/dl (65-105)
[2020-12-11] MEDS: PHYTONADIONE 2.5 MG TAB PO (18:14)
[2020-12-11 19:46] LABS: SARS-CoV-2 RNA PCR Negative
[2020-12-11 21:29] LABS: Glucose Point of Care 114 mg/dl (65-105)
[2020-12-12] VITALS: PULSE 91
--- NOTE | 2020-12-12 02:59 | PC.NURSE ---
Pt transferred to [facility] via ambulance. daughter updated and consent received. All belongings taken. Report given to receiving RN. Pt tolerated transfer to [facility] well.
[2020-12-12 22:18] LABS: Myoglobin, Urine 91 mcg/L (<28)
[2020-12-14 09:35] LABS: Glucose Point of Care 173 mg/dl (65-105)
[2020-12-16 10:42] LABS: Chloride Rand Ur <20 mmol/L (32-290); Creatinine Random Urine 112 mg/dL (20-275)
== END 2020-12-12 02:50 | DRG 981 ==
LOC: ANHED 17:19 → ANHIMU 18:48 → ANH2MED 12-15 13:36 → ANH3MEDSUR 12-15 13:36 → ANHICU 12-15 13:36 → ANHIMU 12-15 13:36
PROVIDERS: Internal Medicine; Internal Medicine Nephrology; Nurse Practitioner; Surgery; Admitting Provider Family Medicine; Emergency Provider Emergency Medicine; PCP Internal Medicine; Visit Provider Internal Medicine
PROC: 0QB10ZZ Excision of Sacrum, Open Approach (ICD-10-PCS; principal; 2020-12-08 07:30)
DX: I13.0 Hypertensive heart and chronic kidney disease with heart failure and stage 1 through stage 4 chronic kidney disease, or unspecified chronic kidney disease (principal); N17.0 Acute kidney failure with tubular necrosis; I50.33 Acute on chronic diastolic (congestive) heart failure; J18.9 Pneumonia, unspecified organism; J96.21 Acute and chronic respiratory failure with hypoxia; L97.419 Non-pressure chronic ulcer of right heel and midfoot with unspecified severity; N39.0 Urinary tract infection, site not specified; L97.429 Non-pressure chronic ulcer of left heel and midfoot with unspecified severity; Z68.41 Body mass index [BMI] 40.0-44.9, adult; D62 Acute posthemorrhagic anemia; I24.8 Other forms of acute ischemic heart disease; D68.9 Coagulation defect, unspecified; I25.118 Atherosclerotic heart disease of native coronary artery with other forms of angina pectoris; R07.9 Chest pain, unspecified; F03.90 Unspecified dementia, unspecified severity, without behavioral disturbance, psychotic disturbance, mood disturbance, and anxiety; L89.150 Pressure ulcer of sacral region, unstageable; N18.30 Chronic kidney disease, stage 3 unspecified; J44.9 Chronic obstructive pulmonary disease, unspecified; Z89.612 Acquired absence of left leg above knee; I49.3 Ventricular premature depolarization; G40.909 Epilepsy, unspecified, not intractable, without status epilepticus; E11.621 Type 2 diabetes mellitus with foot ulcer; R10.9 Unspecified abdominal pain; E11.51 Type 2 diabetes mellitus with diabetic peripheral angiopathy without gangrene; Z79.82 Long term (current) use of aspirin; Z79.4 Long term (current) use of insulin; D63.1 Anemia in chronic kidney disease; K42.9 Umbilical hernia without obstruction or gangrene; Z79.01 Long term (current) use of anticoagulants; H54.8 Legal blindness, as defined in USA; E66.01 Morbid (severe) obesity due to excess calories; Z20.822 Contact with and (suspected) exposure to COVID-19; I95.2 Hypotension due to drugs; E86.9 Volume depletion, unspecified; I25.2 Old myocardial infarction; Z95.5 Presence of coronary angioplasty implant and graft; I49.1 Atrial premature depolarization
CPT/HCPCS: 36415; 36430; 36600; 71045; 74177; 76775; 80048; 80053; 80076; 81001; 81050; 82436; 82550; 82565; 82570; 82805; 82948; 83036; 83605; 83690; 83874; 84100; 84156; 84300; 84484; 84540; 85025; 85027; 85610; 85730; 85999; 86850; 86900; 86901; 86923; 87040; 87070; 87075; 87086; 87088; 87205; 93005; 93971; 96361; 96365; 99285; A9270; C9803; G0378; J0330; J0692; J0696; J1100; J1815; J1940; J1953; J2060; J2370; J2405; J2543; J3010; J3370; J7030; J7040; J7050; J7120; P9016; P9047; Q9967; U0003; U0005